=== PATIENT | male | born 1970 | race Caucasian/White ===

== ENCOUNTER 2024-06-01 02:02 | Emergency (ER) | payer SELFPAY ==
--- NOTE | 2024-06-01 | ECG_ITS ---
Test Reason : TACHY Blood Pressure : */* mmHG Vent. Rate : 90 BPM Atrial Rate : 90 BPM P-R Int : 138 ms QRS Dur : 100 ms QT Int : 354 ms P-R-T Axes : 37 23 17 degrees QTcB Int : 433 ms Normal sinus rhythm with sinus arrhythmia Normal ECG No previous ECGs available Referred By: Generic ED Physician Electronically Signed By: DELIA VALENTINE
--- NOTE | ~2024-06-01 | CT_ITS ---
CLINICAL HISTORY: Right flank pain RLQ pain CT abdomen and pelvis without contrast Comparison: None Findings: The lung bases are clear. The gallbladder and solid organs are within normal limits. No renal stones. There is a significant amount of stool within the right and transverse colon. There may be fecal impaction in the rectosigmoid. Pelvic contents unremarkable. Normal appendix. No acute fracture. IMPRESSION: There is a significant amount of stool within the right and transverse colon. There may be fecal impaction in the rectosigmoid. This document has been electronically signed by: Rashel Combs MD on 06/01/2024 05:49:20
--- NOTE | 2024-06-01 02:00 | PC.NURSE ---
pt a&ox4, respirations even and unlabored. pt reports sudden onset of left sided chest pain and lower right quadrant pain. pt reports intermittent nausea but denies vomiting and diarrhea. pt is hard stick, labs obtained but unable to obtain iv access at this time. vss.
[2024-06-01 02:06] VITALS: BP 120/84; BP 96/54; PULSE 150; PULSE 85; RESP 20; TEMP 36.9; O2SAT 98; BMI 25.7
[2024-06-01 02:26] LABS: Basophils Percent Auto 0.5 % (0-2); Eosinophils Absolute Auto 0.3 X10*3/uL (0.0-0.4); Eosinophils Percent Auto 4.6 % (0-4); Hematocrit 39.9 % (42.0-52.0); Hemoglobin 13.6 g/dl (14.0-18.0); Imm Gran Abs Auto 0.02 X10*3/uL (0.00-0.03); Imm Gran Pct Auto 0.4 % (0.0-0.4); Lymphocytes Absolute Auto 1.5 X10*3/uL (1.2-4.9); Lymphocytes Percent Auto 26.4 % (20-40); Mean Corpuscular HGB Conc 34.1 g/dl (31.0-36.0); Mean Corpuscular Hemoglobin 29.5 pg (27.0-33.0); Mean Corpuscular Volume 86.6 fL (80.0-98.0); Mean Platelet Volume 10.6 fL (9.4-12.4); Monocytes Absolute Auto 0.6 X10*3/uL (0.1-1.2); Monocytes Percent Auto 10.4 % (2-11); Neutrophils Absolute Auto 3.3 x10*3/uL (2.0-8.3); Neutrophils Percent Auto 57.7 % (45-73); PLT CLUMP 1; Red Blood Count 4.61 X10*6/uL (4.60-5.80); Red Cell Distribution Width 15.8 % (11.0-16.0); SCAN SMEAR FLAG 1
[2024-06-01 02:27] LABS: MANUAL DIFF FLAG NO; White Blood Count 5.7 X10*3/uL (4.8-10.8)
--- OUTSIDE RECORDS SUMMARY | 2024-06-01 02:35 | XMS_ITS | Clinical Summary ---
Author Organization Formerly [facility] Address [address] [place], [place] [id number] Care Team Providers Care Technology Lead Name Role Phone Unavailable Primary Care Provider Unavailabl e Allergies Active Allergy Reactions Criticality Noted Date Comments Wound Dressing Adhesive Rash Low REDNESS AND ITCHING-SEE NOTE Transpore tape Ketorolac Hives High 01/02/2018 Ketorolac Tromethamine Hives,Swelling High SWELLING AND HIVES Latex Hives High 10/11/2018 Lorazepam Anaphylaxis,Rash High 05/24/2012 Rash and throat closes Tramadol Hives,Swelling High Medications Medication Sig Dispensed Refills Start Date End Date Status lisinopril 10 MG tablet Take 10 mg by mouth daily. Active ASPIRIN 81 MG chewable tablet Chew 81 mg daily. Active nitroglycerin (Nitrostat) 0.[address] 0.4 mg under the tongue every 5 (five) minutes as needed for chest pain. Active dilTIAZem extended release (Cardizem CD) 120 MG 24 hr capsule Take 1 capsule (120 mg) by mouth daily. 12/19/2022 Active Active Problems Problem Noted Date Diagnosed Date Microcytic anemia 02/10/2020 Hyperlipidemia 02/10/2020 Essential hypertension 02/10/2020 Left against medical advice 05/16/2019 Syncope 05/16/2019 Chest pain 10/18/2016 Family History Medical History Relation Name Comments Heart disease Father Stroke Father No Known Problems Mother Coronary artery disease Paternal Grandfather Heart disease Paternal Grandfather Relation Name Status Comments Father Alive Mother Paternal Grandfather Social History Tobacco Use Types Packs/Day Years Used Date Smoking Tobacco: Never Assessed Sex and Gender Information Value Date Recorded Sex Assigned at Not on file Gender Identity Not on file Sexual Orientation Not on file Last Filed Vital Signs Vital Sign Reading Time Taken Comments Blood Pressure 112/64 05/11/2023 10:43 AM MDT Pulse 108 05/11/2023 10:43 AM MDT Temperature 36.2 ??C (97.2 ??F) 05/11/2023 10:43 AM M DT Respiratory Rate 20 05/11/2023 10:43 AM MDT Oxygen Saturation 94% 05/11/2023 10:43 AM MDT Inhaled Oxygen Concentration - - Weight 83 kg (183 lb) 05/11/2023 10:43 AM MDT Height 185.4 cm (6' 1 ) 05/11/2023 10:43 AM MDT Body Mass Index 24.14 05/11/2023 10:43 AM MDT Plan of Treatment Not on file
--- OUTSIDE RECORDS SUMMARY | 2024-06-01 02:35 | XMS_ITS | Encounter Summary ---
Author Organization [facility] Address [address] [place] [address], [address] [place] [address] Care Team Providers Care Environmental Sciences Professor Name Role Phone None, Pcp Primary Care Provider UnavailDelmi Swift RN Unavailable [phone] Serenity Gallego RN Unavailable Unavailable Mansi Ya Pan Helper Unavailable [phone] Corrina Morales RN Unavailable Unavailable Source Comments In the event that these patient records contain information protected by federal confidentiality rules ( 42 CFR Part 2), the Federal rules prohibit you from making any further disclosure of this information unless further disclosure is expressly permitted by the written consent of the person to whom it pertains or as otherwise permitted by 42 CFR Part 2. A general authorization for the release ofmedical or other information is NOT sufficicient for this purpose. The Federal rules restrict any use of the information to criminally investigate or prosecute any alcohol or drug abuse patient.[facility] Encounter Details Date Type Department Care Team (Late st Contact Info) Description 12/17/1991 Historical Visit CONV HISTORICAL [facility], NOT CONVERTED Social History Tobacco Use Types Packs/Day Years Used Date Smoking Tobacco: Never Assessed Sex and Gender Information Value Date Recorded Sex Assigned at Male 11/15/2023 6:27 PM MDT Legal Sex Male 12:32 PM MST Gender Identity Male 11/15/2023 6:27 PM MDT Sexual Orientation Straight 11/15/2023 6: 27 PM MDT documented as of this encounter Plan of Treatment Not on file documented as of this encounter Visit Diagnoses Not on filedocumented in this encounter Care Teams Environmental Sciences Professor Relationship Specialty Start Date End Date None, Pcp, MD PCP - General Other or Unknown Specialty 01/10/13 Delmi Dill, JANICE Pan Helper 11/12/23 11/12/23 Serenity Gallego, clinical resource director 11/16/23 11/16/23 Mansi Ya, Pan Helper Pan Helper 11/19/23 11/19/23 Corrina Morales, clinical resource director 03/24/24 03/24/24 documented as of this encounter
--- OUTSIDE RECORDS SUMMARY | 2024-06-01 02:35 | XMS_ITS | Referral Summary ---
Author Organization [facility] Address [address] [place] [address] Care Team Providers Care Television And Radio Repairer Name Role Phone Pcp, None Given Primary Care Provider Unavailabl e Allergies Active Allergy Reactions Criticality Noted Date Comments Adhesive Itching,Rash Medium 06/06/2012 Clear tape, blisters Adhesive Tape Rash Low REDNESS AND ITCHING-SEE NOTE Transpore tape Adhesive Tape-Silicones Rash Low 06/05/2015 Diphenhydramine Hcl Other (See Comments) Pt. states allergic to IV form only. Ketorolac Tromethamine Hives,Swelling (water retention) High SWELLING AND HIVES Latex Hives High 10/11/2018 Lorazepam Anaphylaxis,Rash High 05/24/2012 Rash and throat closes Ketorolac Hives High 01/02/2018 Tramadol Hives,Swelling (water retention) High Medications lisinopril (PRINIVIL,ZESTRIL ) 10 MG tablet Take 10 mg by mouth daily. Active atorvastatin calcium (LIPITOR ORAL) Take 20 mg by mouth daily. Active nitroglycerin (NITROSTAT) 0.[address] 1 tablet (0.4 mg) under the tongue every 5 minutes as needed for chest pain. 90 tablet 4 Active rivaroxaban (XARELTO) 20 mg tablet Take 1 tablet (20 mg) by mouth daily with dinner. 90 tablet 4 12/23/19 25 Active metoprolol succinate (TOPROL-XL) 100 MG 24 hr tabletIndications :Atrial fibrillation with RVR (CMS/HCC) Take 1 tablet (100 mg) by mouth 2 times a day. 180 tablet 11/1712/23/19 25 Active Active Problems Problem Noted Date Diagnosed Date CVA (cerebral vascular accident) 07/12/2023 Assessment & Plan (07/12/2023 11:27 AM MDT): Assessment:see HPI, patient reports 2 previous CVAs in the past with no residual deficits, he is chronically anticoagulated on Xarelto secondary to A-fib, he reports he is compliant with all his medications and is on a statin, he denies any missed doses, patient presented with sudden onset headache and left-sided numbness, initial NIH was 18 -Patient seen by neurology-not a candidate for TNK secondary to chronic anticoagulation-neurology recommended aspirin suppository be given, okay to start DVT prophylaxis, recommend stat MRI to assess clot burden and close monitoring and IMC Plan: Stroke order set placed with complete workup including echocardiogram, MRI brain, PT OT and speech eval's, lipid panel, A1c Schizophrenia 07/12/2023 Overview (08/01/2023): Assessment patient reports multiple diagnoses with psych disorders including PTSD, dissociative identity disorder, schizophrenia and schizoaffective disorder, severe depression requiring electric shock therapy, patient reports he is not currently on any psych medications Assessment & Plan (07/12/2023 11:31 AM MDT): Assessment patient reports multiple diagnoses with psych disorders including PTSD, dissociative identity disorder, schizophrenia and schizoaffective disorder, severe depression requiring electric shock therapy, patient reports he is not currently on any psych medications -He reports he will need full anesthesia for MRI due to the head plate use to stabilize his head and MRI is similar to his electric shock therapy and will trigger a panic attack if they try to apply it while he is conscious Plan: As above, have reached out to MRI to schedule anesthesia for MRI as above, will hold off on ordering any behavior medications or anxiety medications due to need for close neurological monitoring secondary to acute CVA, continue to follow during hospital stay Tobacco abuse 07/12/2023 Assessment & Plan (07/12/2023 11:31 AM MDT): Assessment: Historical, chronic, patient smokes 1/2 pack/day, also smokes marijuana and uses edibles Plan: Recommend complete tobacco cessation and lifetime avoidance Stroke with cerebral ischemia 07/12/2023 Hyperthyroidism 05/11/2023 Assessment & Plan (07/12/2023 11:28 AM MDT): Assessment: Patient reports history of hyperthyroidism-Home med list do not show any current medications for this Plan: Check TSH, follow Assessment & Plan (05/11/2023 11:01 AM MDT): -Undetectable TSH, T4 is elevated -Recommend that he talk to his primary care doctor about getting a referral to endocrinology as hyperthyroidism could be driving his atrial fibrillation Coronary artery disease invo lving curyung coronary artery of curyung heart without angina pectoris 05/11/2023 Overview (08/01/2023): History nonobstructive coronary artery disease by cath in 2019 in [place] Assessment & Plan (07/12/2023 11:21 AM MDT): Assessment: Patient reports 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, is on beta-aakash, JONES inhibitor, statin, initially presented with chest pain but reports no chest pain currently, initial troponin 5, EKG without ST elevation, do not suspect ACS at this time Plan: Hold off on home dose antihypertensive regimen for now in the setting of need for permissive hypertension due to stroke, will monitor on telemetry, follow for any further symptoms Assessment & Plan (05/11/2023 11:01 AM MDT): -History nonobstructive coronary artery disease by cath in 2019 in [place] -Continue atorvastatin -Metoprolol as above -Transthoracic echo Longstanding persistent atrial fibrillation 10/2023 Overview (08/01/2023): 14 day monitor, 05/2023: The patient was monitored for 9 days 12 hours and 3 minutes. The predominant rhythm showed atrial fibrillation. Min HR: 56 bpm Max HR: 211 bpm Mean HR: 99 bpm There were no PACs.There were occasional PVCs. Percent PVC's: 1. PAC burden: 0% PVC burden: 1% Paroxysmal SVT: None Sustained SVT: None Atrial fibrillation: Persistent, ventricular rates ranging from 56 to 211 bpm with average ventricular rate of 100 bpm Atrial flutter: None Nonsustained ventricular arrhythmias: None Sustained ventricular arrhythmias: None Heart block or pauses: None Patient reported symptoms correlated with: Atrial fibrillation with ventricular rates ranging from 104 to 112 bpm Assessment & Plan (08/01/2023 11:10 AM MDT): Marginally controlled rates as noted above. Denies adverse side effects to metoprolol succinate. -Increase metoprolol succinate to 100 mg BID -Cont Xarelto -Of note, patient is transferring care to [facility] Cardiology and is already scheduled with them next month. Assessment & Plan (07/12/2023 11:29 AM MDT): Assessment: Historical, chronic, patient is on metoprolol for rate control and Xarelto for anticoagulation, reports compliance with all medications, no missed doses, does have a previous history of CVAs in the past Plan: Hold home dose regimen for now in the setting of acute CVA, follow on telemetry Assessment & Plan (05/11/2023 11:03 AM MDT): -Patient remains in A-fib today with borderline controlled rhythm -Given history of nonobstructive coronary artery disease by cath, will discontinue diltiazem and increase metoprolol succinate from 50 mg to 100 mg daily -Transthoracic echo to evaluate left atrial size and LV function -[id number] 2 (hypertension, vascular disease) -Continue Eliquis 5 mg twice daily -Patient states that he has had multiple CVAs in the past, but looking at all of his imaging, there is been no evidence of CVA and he is only had TIA type symptoms Hyperlipidemia 02/10/2020 Overview (08/01/2023): Treated with atorvastatin 20 mg nightly. Assessment & Plan (08/01/2023 10:47 AM MDT): Would recommend high intensity statin therapy in the setting of prior CVA, will defer to PCP. Assessment & Plan (07/12/2023 11:32 AM MDT): Assessment: Historical, chronic, patient is on Lipitor Plan: Lipid panel ordered, continue statin in the setting of CVA-will increase dose Assessment & Plan (05/11/2023 11:00 AM MDT): -Continue atorvastatin -Management per PCP Assessment & Plan (02/10/2020 3:46 PM MST): Cont home statin Essential hypertension 02/10/2020 Assessment & Plan (08/01/2023 10:48 AM MDT): Well-controlled in office at 110/58. Assessment & Plan (07/12/2023 11:27 AM MDT): Assessment: Historical, chronic, patient is on lisinopril and metoprolol at baseline, BP trends in the ED without significant elevation Plan: Hold home dose antihypertensive regimen in the setting of CVA-will allow for permissive hypertension-antihypertensives per stroke order set with goal systolic blood pressure less than 220 Assessment & Plan (05/11/2023 11:00 AM MDT): -Blood pressure currently at goal -Changes to medications as above Assessment & Plan (02/10/2020 3:48 PM MST): On 10 mg lisinopril at home BPs well controlled to low in ED -will cont home BP medication Microcytic anemia 02/10/2020 Assessment & Plan (02/10/2020 3:49 PM MST): Appears chronic for patient. Hgb 11.1 in ED and appears BL per chart review around 11 -would recommend outpatient work-up Left against medical advice 05/16/2019 Syncope 05/16/2019 Chest pain 10/18/2016 Assessment & Plan (02/10/2020 3:46 PM MST): Pt with two day history of substernal chest pain that radiates to left arm. Pt also with hx of CAD with pt reported LA in the past. Per chart review last Cath 2014 and was clean. Echo 09/2019 in care everywhere showed nml LVEF 64% moderate diastolic dysfunction and mild right ventricular dilation -Will trend trops q6h already neg x2 -Stress test in am -Cardiac Diet and NPO after midnight -Consider cards consult if worsening or elevated trops -A1c/Lipids to Risk Stratify -Monitor on Tele/Pulse Ox -Keep O2 >90 per protocol -Pain control with tylenol and nitro PRN -Admit to tele-obs Social History Tobacco Use Types Packs/Day Years Used Date Smoking Tobacco: Every Day Cigarettes 0.5 35 Smokeless Tobacco: Never Tobacco Cessation:Ready to Q uit: Not Asked; Counseling Given: Not Answered Alcohol Use Standard Drinks/Week Comments Yes 0 (1 standard drink = 0.6 oz pur e alcohol) occ. [facility] Utilities Answer Date Recorded In the past 12 months has e [employer], gas, oil, or water [employer] threatened to shut off services in your home? No 07/12/2023 Humiliation, Afraid, Rape, and Kick questionnair e Answer Date Recorded Within the last year, have y ou been afraid of your partner or ex-partner? No 07/12/2023 Within the last year, have y ou been humiliated or emotionally abused in other ways by your partner or ex-partner? No Within the last year, have y ou been kicked, hit, slapped, or otherwise physically hurt by your partner or ex-partner? No 07/12/2023 Within the last year, have y ou been raped or forced to have any kind of sexual activity by your partner or ex-partner? No 07/12/2023 PHQ-2 Answer Date Recorded PHQ-2 Score 0 04/08/2019 Hunger Vital Sign Answer Date Recorded Within the past 12 months, y ou worried that your food would run out before you got the money to buy more. Never true 07/12/19 24 Within the past 12 months, t he food you bought just didn't last and you didn't have money to get more. Never true 07/12/2023 PRAPARE - Transportation Answer Date Re corded In the past 12 months, has l ack of transportation kept you from medical appointments or from getting medications? No 07/2023 In the past 12 months, has l ack of transportation kept you from meetings, work, or from getting things needed for daily living? No 07/12/2023 Housing Stability Vital Sign Answer Kendell e Recorded In the last 12 months, was t here a time when you were not able to pay the mortgage or rent on time? No 07/12/2023 In the last 12 months, how many places have you lived? 1 07/12/2023 In the last 12 months, was t here a time when you did not have a steady place to sleep or slept in a longterm (including now)? No 07/12/2023 Sex and Gender Information Value Date Recorded Sex Assigned at Not on file Legal Sex Male 1:22 PM MDT Gender Identity Not on file Sexual Orientation Not on file Last Filed Vital Signs Vital Sign Reading Time Taken Comments Blood Pressure 101/71 02/15/2024 1:30 PM MST Pulse 85 02/15/2024 1:30 PM MST Temperature 36.7 ??C (98.1 ??F) 02/15/2024 10:10 AM M Respiratory Rate 17 02/15/2024 1:30 PM MST Oxygen Saturation 94% 02/15/2024 1:30 PM MST Inhaled Oxygen Concentration - - Weight 87.7 kg (193 lb 5.5 oz) 02/15/2024 10:16 AM MST Height 185.4 cm (6' 1 ) 02/15/2024 10:16 AM MST Body Mass Index 25.51 02/15/2024 10:16 AM MST Plan of Treatment Not on file [place] [place] [address] [address] [place] [address] [place] [address] [place] [address] Advance Directives * Full Code (Latest Code Status on File) Date Activated Date Inactivated Comments 07/12/2023 12:56 PM 07/13/2023 4:18 PM * Full Code Date Activated Date Inactivated Comments 04/13/2023 6:19 PM 04/14/2023 1:00 PM * Full Code Date Activated Date Inactivated Comments 03/16/2023 10:29 PM 03/17/2023 7:56 AM * Full Code Date Activated Date Inactivated Comments 02/10/2020 2:51 PM 02/11/2020 8:15 AM * Full Code Date Activated Date Inactivated Comments 04/08/2019 3:27 PM 04/09/2019 9:15 AM Care Teams Television And Radio Repairer Relationship Specialty Start Date End Date Pcp, None Given PCP - General 02/15/24
--- OUTSIDE RECORDS SUMMARY | 2024-06-01 02:35 | XMS_ITS | Encounter Summary ---
Author Organization [facility] Address [address] [place] [address], [address] [place] [address] Care Team Providers Care Clam Bed Worker Name Role Phone None, Pcp Primary Care Provider UnavailDelmi Swift RN Unavailable [phone] Serenity Gallego RN Unavailable Unavailable Mansi Ya Embroiderer Unavailable [phone] Corrina Morales RN Unavailable Unavailable Source Comments [...] or prosecute any alcohol or drug abuse patient.[facility] Encounter Details Date Type Department Care Team (Late st Contact Info) Description 05/08/2009 Emergency [facility] - Emergency [address] [place] [address] Calvin Greenberg MD Social History Tobacco Use Types Packs/Day Years Used Date Smoking Tobacco: Never Assessed Sex and Gender Information Value Date Recorded Sex Assigned at Male 11/15/2023 6:27 PM MDT Legal Sex Male 12:32 PM MST Gender Identity Male 11/15/2023 6:27 PM MDT Sexual Orientation Straight 11/15/2023 6: 27 PM MDT documented as of this encounter Miscellaneous Notes * Scanned Note Null - Document Scanned - 12/03/2011 9:01 AM MDT * Scanned Note Null - Document Scanned - 12/03/2011 9:01 AM MDT * Scanned Note Null - Document Scanned - 12/03/2011 9:01 AM MDT * Scanned Note Null - Document Scanned - 11/17/2011 9:02 AM MDT * Scanned Note Null - Document Scanned - 11/17/2011 9:02 AM MDT * Scanned Note Null - Document Scanned - 11/17/2011 9:02 AM MDT * Scanned Note Null - Document Scanned - 11/17/2011 9:02 AM MDT * Scanned Note Null - Document Scanned - 11/17/2011 9:02 AM MDT * Scanned Note Null - Document Scanned - 11/17/2011 9:00 AM MDT * Scanned Note Null - Document Scanned - 11/17/2011 9:00 AM MDT * Scanned Note Null - Document Scanned - 11/17/2011 9:00 AM MDT * Scanned Note Null - Document Scanned - 11/17/2011 8:59 AM MDT * Scanned Note Null - Document Scanned - 11/17/2011 8:59 AM MDT * Scanned Note Null - Document Scanned - 11/17/2011 8:59 AM MDT * Scanned Note Null - Document Scanned - 11/17/2011 8:58 AM MDT * Scanned Note Null - Document Scanned - 11/17/2011 8:58 AM MDT * Scanned Note Null - Document Scanned - 11/17/2011 8:58 AM MDT documented in this encounter Plan of Treatment Not on file documented as of this encounter Visit Diagnoses Not on filedocumented in this encounter Care Teams Clam Bed Worker Relationship Specialty Start Date End Date None, Pcp, MD PCP - General Other or Unknown Specialty 01/10/13 Delmi Dill, RN Embroiderer 11/12/23 11/12/23 Serenity Gallego, mason foreman/superintendant 11/16/23 11/16/23 Mansi Ya, Embroiderer Embroiderer 11/19/23 11/19/23 Corrina Morales, mason foreman/superintendant 03/24/24 03/24/24 documented as of this encounter
--- OUTSIDE RECORDS SUMMARY | 2024-06-01 02:35 | XMS_ITS | Clinical Summary ---
Author Organization [address] Address [address] [place] [phone] Phone Care Team Providers Care Route Cdl Driver Name Role Phone No, Pcp (Do Not Change Name) Primary Care Provid er Unavailable Allergies Active Allergy Reactions Criticality Noted Date Comments Diphenhydramine Hcl Other (See Comments) Medium 2024 Patient reports 'joints locked up' when given via IV. Metoclopramide Other (See Comments) Medium 12/06/2021 Patient reports that his body tenses up and he has muscle spasms Adhesive Tape-Silicones Itching,Dermatit is,E pili Low 03/26/2017 Clear Plastic Ketorolac Hives High 10/31/2013 & vomiting per patient SP Tramadol Hives High 10/31/2013 & vomiting per patient SP Medications aspirin chewable tablet Take 1 tablet (81 mg total) by mouth daily. Active metoprolol succinate XL (TOPROL-XL) 100 mg 24 hr tablet Take 1 tablet (100 mg total) by mouth 2 (two) times daily. Take with or immediately following a meal. Active rivaroxaban (XARELTO) 20 mg tablet Take 1 tablet (20 mg total) by mouth daily. Active lisinopril (PRINIVIL,ZEST RIL) 10 MG tabletIndicati ons:hypertensi on Take 1 tablet (10 mg total) by mouth daily. 14 tablet 6 025 Discontinu ed(!Delete Cleanup (No Cancel Msg)) nitroGLYCERIN (NITROSTAT) 0.[address] 1 tablet (0.4 mg total) under the tongue every 5 (five) minutes as needed for Chest pain. 14 tablet 6 025 Discontinu ed(!Delete Cleanup (No Cancel Msg)) atorvastatin (LIPITOR) 20 MG tablet Take 20 mg by mouth daily. 025 Discontinu ed(!Delete Cleanup (No Cancel Msg)) Active Problems Problem Noted Date Diagnosed Date Antisocial personality disorder 12/06/2021 Rule out Malingering 12/06/2021 Homelessness 12/06/2021 Chest pain 03/26/2017 HTN (hypertension) 03/26/2017 Psychosis, unspecified psychosis type (HC Code) (HC CODE) 04/17/2015 Encounters Date Type Department Care Team Description 05/23/2024 Patient Outreach Care Coordination [address] [place] [address] Guera Pascual RN Hospital Discharge Follow Up 05/20/2024 2:27 PM EDT - 05/21/2024 5:45 AM EDT Emergency [facility] [address] [place] [id number] Roseann Suazo MD Krotovskiy, Mikhail, MD Chest pain (Primary Dx) Discharge Disposition: Left Against Medical Advice 05/20/2024 Travel from Last 3 Months Social History Tobacco Use Types Packs/Day Years Used Date Smoking Tobacco: Every Day Cigarettes Smokeless Tobacco: Never Tobacco Cessation:Ready to Q uit: No; Counseling Given: Yes Alcohol Use Standard Drinks/Week Comments No 0 (1 standard drink = 0.6 oz pur e alcohol) [facility] Utilities Answer Date Recorded In the past 12 months has [employer], gas, oil, or water [employer] threatened to shut off services in your home? No 05/20/2024 Overall Financial Resource Strain (CARDIA) Answe r Date Recorded How hard is it for you to pa y for the very basics like food, housing, medical care, and heating? Hard 12/07/2021 PHQ-2 Answer Date Recorded PHQ-2 Total Score 0 05/20/2024 Hunger Vital Sign Answer Date Recorded Within the past 12 months, y ou worried that your food would run out before you got the money to buy more. Sometimes true Within the past 12 months, t he food you bought just didn't last and you didn't have money to get more. Sometimes true PRAPARE - Transportation Answer Date Re corded In the past 12 months, has l ack of transportation kept you from medical appointments or from getting medications? No 05/06 In the past 12 months, has l ack of transportation kept you from meetings, work, or from getting things needed for daily living? No 05/20/2024 Housing Stability Answer Date Recorded What is your living situation today? I d o not have a steady place to live (temporarily staying with others, in a hotel, in a alf, living outside on the street, on a beach, in a car, abandoned building, bus or train station, or in a park) 05/20/2024 Housing Stability Not on file 05/20/2024 Interpersonal Safety Answer Date Record ed Is there anyone in your life that is hurting or threatening you in anyway? 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 Not on file Not on file Last Filed Vital Signs Vital Sign Reading Time Taken Comments Blood Pressure 126/68 05/21/2024 5:27 AM EDT Pulse 74 05/21/2024 5:27 AM EDT Temperature 36.5 ??C (97.7 ??F) 05/21/2024 5:27 AM ED T Respiratory Rate 18 05/20/2024 8:13 PM EDT Oxygen Saturation 97% 05/21/2024 5:27 AM EDT Inhaled Oxygen Concentration - - Weight 85.4 kg (188 lb 4.8 oz) 05/20/2024 7:50 P M EDT Height 185.4 cm (6' 1 ) 05/20/2024 7:50 PM EDT Body Mass Index 24.84 05/20/2024 7:50 PM EDT Plan of Treatment Health Maintenance Due Date Last Done Comments Hepatitis C screening 1990 Prediabetes Surveillance 1990 Pneumococcal Vaccine (50+ years) (1 of 2 - PCV) 10/13/1991 Tetanus adult (Td q 10,TDAP once) 1992 Colon cancer screening, Colonoscopy 2017 Shingles vaccine (Shingrix) (1 of 2 - Shingrix (RZV) 2 Dose Standard Series) 2022 Covid-19 vaccine series ( - season) 2023 Influenza vaccine 10/06/2024 Diabetes screening 05/21/2027 05/20/2024, 1 03/17/2021, 12/07/2021, Additional history exists Lipid disorder screening 05/20/2029 025, 04/17/2015, 04/17/2015 RSV Immunization (1 - 1-dose 75+ series) 10/13/2047 HIV screening Completed 05/17/2018, 09/04/2017 Meningococcal Vaccine Aged Out No otis dominic eligible based on patient's age to complete this topic Procedures Procedure Name Priority Date/Time Associated Diagnosis Comments PARTIAL THROMBOPLASTIN TIME ([facility]) Timed 05/20/2024 9:40 PM EDT URINE MICROSCOPIC ([facility]) STAT 05/20/2024 5:41 PM EDT FENTANYL, URINE, WITH NO CONFIRMATION ([facility] L [facility]) STAT 05/20/2024 5:41 PM EDT URINE DRUG SCREEN W/ NO CONF ([facility]) STAT 05/20/2024 5:41 PM EDT URINALYSIS-MACROSCOPIC W/REFLEX MICROSCOPIC STAT 05/20/2024 5:41 PM EDT URINE DRUG SCREEN W/ NO CONF ([facility]) STAT 05/20/2024 5:41 PM EDT XR CHEST PA OR AP STAT 05/20/2024 4:5 7 PM EDT TROPONIN T HIGH SENSITIVITY, 1 HOUR WITH REFLEX ([facility]) STAT - Timed 05/20/2024 4:13 PM EDT CBC AND DIFFERENTIAL STAT 05/20/2024 2:50 PM EDT BASIC METABOLIC PANEL STAT 05/20/2024 2:50 PM EDT LIPID PANEL Add-On 05/20/2024 2:50 PM EDT CBC WITH AUTO DIFFERENTIAL STAT 05/20/2024 2:50 PM EDT BASIC METABOLIC PANEL STAT 05/20/2024 2:50 PM EDT ETHANOL ([facility]) STAT 05/20/2024 2:50 PM EDT TROPONIN T HIGH SENSITIVITY, 0 HOUR BASELINE WITH REFLEX ([facility]) STAT 05/20/2024 2:50 PM EDT HEPATIC FUNCTION PANEL STAT 2:50 PM EDT LACTIC ACID, PLASMA (REFLEX 2H REPEAT) STAT 05/20/2024 2:50 PM EDT BLOOD GAS, VENOUS ( [facility]) Urgent 05/20/2024 2:50 PM EDT EKG STAT 05/20/2024 2:40 PM EDT CARDIAC EKG RESULT SCAN 05/20/2024 12:00 AM EDT from Last 3 Months Results * Partial thromboplastin time (05/20/2024 9:40 PM EDT) [facility] PTT 28.2 23.0 - 31.0 seconds 05/20/2024 10:09 PM EDT [facility] Comment:THERAPEUTIC RANGE: 3 5-75 seconds Blood Venipuncture / Unknown 05/20/2024 9:40 PM EDT 05/20/2024 9:52 PM EDT us Roseann Suazo MD LAB BLOOD ORDERABLES Final Resul t [facility] [place] [address], [facility] [phone] * (ABNORMAL) Urine drug screen w/no conf ([facility]) (05/20/2024 5:41 PM EDT) [facility] Barbiturate Screen, Urine, No Conf. Negative Negative 05/20/2024 6:12 PM EDT [facility] Benzodiazepines Screen, Urine, No Conf. Negative Negative 05/20/2024 6:12 PM EDT [facility] Cannabinoids Screen, Urine, No Conf. Positive(A) Negative 05/20/2024 6:12 PM EDT [facility] Cocaine Screen, Urine, No Conf. Negative Negative 05/20/2024 6:12 PM EDT [facility] Methadone Metabolite Screen, Urine, No Conf. Negative Negative 05/20/2024 6:12 PM EDT [facility] Opiates Screen, Urine, No Conf. Negative Negative 05/20/2024 6:12 PM EDT [facility] Oxycodone Screen, Urine, No Conf. Negative Negative 05/20/2024 6:12 PM EDT [facility] Phencyclidine (PCP) Screen, Urine, No Conf. Negative Negative 05/20/2024 6:12 PM EDT [facility] Amphetamine Screen, Urine, No Conf. Negative Negative 05/20/2024 6:12 PM EDT [facility] Drugs Of Abuse Note See Comment 05/20/2024 6:12 PM EDT [facility] Comment: Drugs of Abuse Note: - These screening cutoffs are for medical/treatment/clinical purposes only. - For all non-medical purposes, samples should be referred for confirmatory testing - The concentration value must be greater than or equal to the cutoff to be reported as positive, and less than the cutoff to be reported as negative. - Follow-up confirmation testing by mass spectrometry is recommended for unexpected results. - Interpretive questions should be directed to the laboratory. - This test was performed in a CLIA certified laboratory. Analyte ?Cutoff (ng/mL) Amphetamine ?1000 Barbiturate ?200 Benzodiazepine ? 200 Cannabinoids ? 50 Cocaine ?300 Methadone/Methadone Metabolite* ?100 Opiates ?300 Oxycodone ?100 Phencyclidine (PCP) ?25 * At -, , and [facility] the screening cutoff for Methadone is 300 ng/mL. Urine Collection / Unknown 05/20/2024 5:41 PM EDT 05/20/2024 5:44 PM EDT Roseann Suazo MD URINE ORDERABLES Final Result [facility] [address] [place] [address] * Urine microscopic ([facility]) (05/20/2024 5:41 PM EDT) RBC/HPF, UA 1 0 - 2 /HPF 05/20/2024 5:52 PM EDT [facility] WBC/HPF, UA 5 0 - 5 /HPF 05/20/2024 5:52 PM EDT [facility] Bacteria, UA Rare None-Rare /HPF 05/20/2024 5:52 PM EDT [facility] Urine Squamous Epithelial Cells, UA 2 0 - 5 /HPF 05/20/2024 5:52 PM EDT [facility] Urine Collection / Unknown 05/20/2024 5:41 PM EDT 05/20/2024 5:44 PM EDT Roseann Suazo MD URINE ORDERABLES Final Result [facility] [address] [place] [address] * (ABNORMAL) Urinalysis (No UTI symptoms) (05/20/2024 5:41 PM EDT) Clarity, UA Clear Clear 05/20/2024 5:48 PM EDT [facility] Color, UA Yellow Yellow, Colorless 05/20/2024 5:48 PM EDT [facility] Specific Stebbins, UA 1.031(H) 1.005 - 1.030 05/20/2024 5:48 PM EDT [facility] pH, UA 6.0 5.5 - 7.5 05/20/2024 5:48 PM EDT [facility] Protein, UA Trace Negative, Trace 05/20/2024 5:48 PM EDT [facility] Glucose, UA Negative Negative 05/20/2024 5:48 PM EDT [facility] Ketones, UA Negative Negative 05/20/2024 5:48 PM EDT [facility] Blood, UA Negative Negative 05/20/2024 5:48 PM EDT [facility] Bilirubin, UA Negative Negative 05/20/2024 5:48 PM EDT [facility] Leukocytes, UA 2+(A) Negative 05/20/2024 5:48 PM EDT [facility] Nitrite, UA Negative Negative 05/20/2024 5:48 PM EDT [facility] Urobilinogen, UA <2.0 <=2.0 mg/dL 05/20/2024 5:48 PM EDT [facility] Urine Collection / Unknown 05/20/2024 5:41 PM EDT 05/20/2024 5:44 PM EDT Roseann Suazo MD URINE ORDERABLES Final Result Performing Organization Address City/[facility] Co de Phone Number [facility] [address] [place] [address] * Fentanyl, urine, with no confirmation ([facility]) (05/20/2024 5:41 PM EDT) [facility] Signature Fentanyl Screen, Urine Negative Negative 05/20/2024 6:12 PM EDT [facility] Comment: This immunoassay is reported as negative if the reactivity is below that of a 5 ng/mL calibrator. Effective 07/25/22, the Clinical Chemistry Laboratory at [facility] is running the urine fentanyl immunoassay test using Shaina recommended reagents. Drugs Of Abuse Note 05/20/2024 6:12 PM EDT [facility] Comment: Formal chain of custody documentation not maintained on clinical specimens. Results are intended for medical management purposes only. Urine Collection / Unknown 05/20/2024 5:41 PM EDT 05/20/2024 5:44 PM EDT us Roseann Suazo MD URINE ORDERABLES Final Result Performing Organization Address City/[facility]/ZIP Co de Phone Number [facility] [address] [place] [address] * CXR (portable) (05/20/2024 4:57 PM EDT) Anatomical Region Laterality Modality Chest Digital Radiogra phy 05/20/2024 5:18 PM EDT Impressions 05/20/2024 5:23 PM EDT No acute cardiothoracic abnormality. [facility] Classification: Routine. Report initiated by: ??Roseann Kirkland MD Reported and signed by: Tobi Martines MD [facility] Narrative 05/20/2024 5:23 PM EDT XR CHEST PA OR AP INDICATION: CHEST PAIN COMPARISON: XR CHEST PA AND LATERAL 2022-01-15 FINDINGS: ?? The cardiomediastinal silhouette is not enlarged. Calcifications are noted in the aortic arch. Calcified nodule in the left perihilar region similar to prior. The lungs are otherwise clear. The pleural spaces are clear. There is no acute osseous injury. Procedure Note Tobi Martines MD - 05/20/2024 XR CHEST PA OR AP INDICATION: CHEST PAIN COMPARISON: XR CHEST PA AND LATERAL 2022-01-15 FINDINGS: The cardiomediastinal silhouette is not enlarged. Calcifications are notedin the aortic arch. Calcified nodule in the left perihilar region similar to prior. The lungsare otherwise clear. The pleural spaces are clear. There is no acute osseous injury. IMPRESSION: No acute cardiothoracic abnormality. [facility] Classification: Routine. Report initiated by: Roseann Kirkland MD Reported and signed by: Tobi Martines MD [facility] Roseann Suazo MD IMG DIAGNOSTIC IMAGING ORDERABLE S Final Result * Troponin T High Sensitivity, 1 Hour With Reflex ([facility]) (05/20/2024 4:13 PM EDT) [facility] Signature High Sensitivity Troponin T 8 See Comment ng/L 05/20/2024 4:39 PM EDT [facility] Comment:High Sensitivity Tro ponin T levels should be interpreted in the context of the [facility] Care Signature pathway. 1 hour Delta from 0 Hour, HS-Troponin T 0 ng/L 05/20/2024 4:39 PM EDT [facility] Blood Venipuncture / Unknown 05/20/2024 4:13 PM EDT 05/20/2024 4:17 PM EDT Roseann Suazo MD LAB BLOOD ORDERABLES Final Resul t [facility] [address] [place] [address] * Lactic acid, plasma (reflex 2h repeat) (05/20/2024 2:50 PM EDT) [facility] Lactate 1.0 0.4 - 2.0 mmol/L 05/20/2024 3:35 PM EDT [facility] Blood Venipuncture / Unknown 05/20/2024 2:50 PM EDT 05/20/2024 2:56 PM EDT us Roseann Suazo MD LAB BLOOD ORDERABLES Final Resul t [facility] [address] [place] [address] * (ABNORMAL) Basic metabolic panel (05/20/2024 2:50 PM EDT) [facility] Sodium 138 136 - 144 mmol/L 05/20/2024 3:20 PM EDT [facility] Potassium 4.3 3.3 - 5.3 mmol/L 05/20/2024 3:20 PM EDT [facility] Chloride 106 98 - 107 mmol/L 05/20/2024 3:20 PM EDT [facility] CO2 21 20 - 30 mmol/L 05/20/2024 3:20 PM EDT [facility] Anion Gap 11 7 - 17 05/20/2024 3:20 PM EDT [facility] Glucose 107(H) 70 - 100 mg/dL 05/20/2024 3:20 PM EDT [facility] BUN 15 6 - 20 mg/dL 05/20/2024 3:20 PM EDT [facility] Creatinine 0.70 0.40 - 1.30 mg/dL 05/20/2024 3:20 PM EDT [facility] Calcium 9.1 8.8 - 10.2 mg/dL 05/20/2024 3:20 PM EDT [facility] BUN/Creatinine Ratio 21.4 8.0 - 23.0 05/20/2024 3:20 PM EDT [facility] eGFR (Creatinine) >60 >=60 mL/min/1.7 3m2 05/20/2024 3:20 PM EDT [facility] Comment: [facility] utilizes CKD-EPI Creatinine 2020 to report eGFR. Values < 60 mL/min/1.73 m2 may indicate CKD if present for more than three months AND creatinine is at steady state. The eGFR provides a rough estimate of kidney function. For further guidance, please refer to the CKD: Adult [employer] Signature pathway. Creatinine Delta 05/20/2024 3:20 PM EDT [facility] Comment:No previous creatini ne <5.00 mg/dL is available within the previous 12 months to calculate a delta creatinine. Blood Venipuncture / Unknown 05/20/2024 2:50 PM EDT 05/20/2024 2:56 PM EDT Roseann Suazo MD LAB BLOOD ORDERABLES Final Resul t Performing Organization Address City/[facility]/ZIP Co de Phone Number [facility] [address] [place] [address] * Troponin T High Sensitivity, Emergency; 0 hour baseline with reflex (1 hour and 3 hour) (52:50 PM EDT) [facility] High Sensitivity Troponin T 8 See Comment ng/L 05/20/2024 3:35 PM EDT [facility] Comment:High Sensitivity Tro ponin T levels should be interpreted in the context of the [facility] Care Signature pathway. Blood Venipuncture / Unknown 05/20/2024 2:50 PM EDT 05/20/2024 2:56 PM EDT Roseann Suazo MD LAB BLOOD ORDERABLES Final Resul t [facility] [address] [place] [address], [facility] [phone] * (ABNORMAL) CBC auto differential (05/20/2024 2:50 PM EDT) [facility] WBC 8.3 4.0 - 11.0 x1000/??L 05/20/2024 3:18 PM EDT [facility] RBC 4.53 4.00 - 6.00 M/??L 05/20/2024 3:18 PM EDT [facility] Hemoglobin 12.9(L) 13.2 - 17.1 g/dL 05/20/2024 3:18 PM EDT [facility] Hematocrit 39.40 38.50 - 50.00 % 05/20/2024 3:18 PM EDT [facility] MCV 87.0 80.0 - 100.0 fL 05/20/2024 3:18 PM EDT [facility] MCH 28.5 27.0 - 33.0 pg 05/20/2024 3:18 PM EDT [facility] MCHC 32.7 31.0 - 36.0 g/dL 05/20/2024 3:18 PM EDT [facility] RDW-CV 15.4(H) 11.0 - 15.0 % 05/20/2024 3:18 PM EDT [facility] Platelets 424(H) 150 - 420 x1000/??L 05/20/2024 3:18 PM EDT [facility] MPV 9.1 8.0 - 12.0 fL 05/20/2024 3:18 PM EDT [facility] Neutrophils 74.3(H) 39.0 - 72.0 % 05/20/2024 3:18 PM EDT [facility] Lymphocytes 14.1(L) 17.0 - 50.0 % 05/20/2024 3:18 PM EDT [facility] Monocytes 9.5 4.0 - 12.0 % 05/20/2024 3:18 PM EDT [facility] Eosinophils 1.2 0.0 - 5.0 % 05/20/2024 3:18 PM EDT [facility] Basophil 0.5 0.0 - 1.4 % 05/20/2024 3:18 PM EDT [facility] Immature Granulocytes 0.4 0.0 - 1.0 % 05/20/2024 3:18 PM EDT [facility] nRBC 0.0 0.0 - 1.0 % 05/20/2024 3:18 PM EDT [facility] Absolute Lymphocyte Count 1.17 0.60 - 3.70 x 1000/??L 05/20/2024 3:18 PM EDT [facility] Monocyte Absolute Count 0.79 0.00 - 1.00 x 1000/??L 05/20/2024 3:18 PM EDT [facility] Eosinophil Absolute Count 0.10 0.00 - 1.00 x 1000/??L 05/20/2024 3:18 PM EDT [facility] Basophil Absolute Count 0.04 0.00 - 1.00 x 1000/??L 05/20/2024 3:18 PM EDT [facility] Absolute Immature Granulocyte Count 0.03 0.00 - 0.30 x 1000/??L 05/20/2024 3:18 PM EDT [facility] Absolute nRBC 0.00 0.00 - 1.00 x 1000/??L 05/20/2024 3:18 PM EDT [facility] ANC (Abs Neutrophil Count) 6.19 2.00 - 7.60 x 1000/??L 05/20/2024 3:18 PM EDT [facility] Blood Venipuncture / Unknown 05/20/2024 2:50 PM EDT 05/20/2024 2:56 PM EDT us Roseann Suazo MD LAB BLOOD ORDERABLES Final Resul t [facility] [address] [place] [address], [facility] [phone] * (ABNORMAL) Blood gas, venous ( Y) (05/20/2024 2:50 PM EDT) pH, Venous 7.43 7.32 - 7.43 units 05/20/2024 3:04 PM EDT [facility] pCO2, Venous 35(L) 38 - 54 mmHg 05/20/2024 3:04 PM EDT [facility] PO2, Venous 59(H) 40 - 50 mmHg 05/20/2024 3:04 PM EDT [facility] O2 Sat, Venous 91 Not Established % 05/20/2024 3:04 PM EDT [facility] Calculated HCO3, Venous 22.8 Not Established mmol/L 05/20/2024 3:04 PM EDT [facility] Base Excess, Venous 0 Not Established mmol/L 05/20/2024 3:04 PM EDT [facility] Temperature, Venous 99.0 Fahrenheit 05/20/2024 3:04 PM EDT [facility] Blood Venipuncture / Unknown 05/20/2024 2:50 PM EDT 05/20/2024 2:56 PM EDT us Roseann Suazo MD LAB BLOOD ORDERABLES Final Resul t Performing Organization Address City/[facility]/ZIP Co de Phone Number [facility] [address] [place] [address] * Ethanol (05/20/2024 2:50 PM EDT) Pathologist [facility] Ethanol <10 <10 mg/dL 05/20/2024 3:20 PM EDT [facility] Blood Venipuncture / Unknown 05/20/2024 2:50 PM EDT 05/20/2024 2:56 PM EDT us Roseann Suazo MD LAB BLOOD ORDERABLES Final Resul t [facility] [address] [place] [id number], [facility] [phone] * Hepatic function panel (05/20/2024 2:50 PM EDT) Total Bilirubin 0.2 <=1.2 mg/dL 05/21/19 25 3:20 PM EDT [facility] Bilirubin, Direct 025 3:20 PM EDT [facility] Comment:Sample Hemolyzed. Alkaline Phosphatase 109 9 - 122 U/L 05/20/2024 3:20 PM EDT [facility] Alanine Aminotransferase (ALT) 24 9 - 59 U/L 05/20/2024 3:20 PM EDT [facility] Comment:Calcium dobesilate c an cause artificially low ALT results at therapeutic concentrations Aspartate Aminotransferase (AST) 27 10 - 35 U/L 05/20/2024 3:20 PM EDT [facility] AST/ALT Ratio 1.1 Reference Range Not Established 05/20/2024 3:20 PM EDT [facility] Total Protein 6.6 5.9 - 8.3 g/dL 025 3:20 PM EDT [facility] Comment:As of 2023, th e reference interval for Total Protein has been changed from (6.6 to 8.7 g/dL) to (5.9 to 8.3 g/dL). Albumin 4.0 3.6 - 5.1 g/dL 05/20/2024 3:20 PM EDT [facility] Comment:As of 2023, th e reference interval for Albumin has been changed from (3.6 to 4.9 g/dL) to (3.6 to 5.1 g/dL). Globulin 2.6 2.0 - 3.9 g/dL 05/20/2024 3:20 PM EDT [facility] Comment:As of 2023, th e reference interval for Globulin has been changed from (2.3 to 3.5 g/dL) to (2.0 to 3.9 g/dL). A/G Ratio 1.5 1.0 - 2.2 05/20/2024 3:20 PM EDT [facility] Blood Venipuncture / Unknown 05/20/2024 2:50 PM EDT 05/20/2024 2:56 PM EDT us Roseann Suazo MD LAB BLOOD ORDERABLES Final Resul t [facility] [address] [place] [address], [facility] [phone] * (ABNORMAL) Lipid panel (05/20/2024 2:50 PM EDT) [facility] Signature Cholesterol 133 See Comment mg/dL 05/20/2024 7:56 PM EDT [facility] Comment: Total Cholesterol (mg/dL) ?Adults (>18 years) ? Children (<18 years) Desirable ?<200 ? <170 Borderline-High ?200-239 ?170-199 High ? >=240 ?>=200 ? HDL 47 >=40 mg/dL 05/20/2024 7:56 PM EDT [facility] Triglycerides 170(H) See Comment mg/dL 05/20/2024 7:56 PM [facility] Comment: Triglycerides (mg/dL) ?Adults (>18 years) ? Children (<18 years) Desirable ?<150 ? Not Established Borderline-High ?150-199 ?Not Established High ? 200-499 ?Not Established ?? Chol/HDL Ratio 2.8 0.0 - 5.0 05/20/2024 7:56 PM [facility] LDL Calculated 58 See Comment mg/dL 05/20/2024 7:56 PM [facility] Comment: Effective 07/13/2021, LDL is calculated using the Norton-NIH equation, which is more accurate than the Friedewald and Rolando-Tanner equations. LDL Cholesterol (mg/dL) ?Adults (>18 years) ? Children (<18 years) Desirable ?<100 ? <110 Above Desirable ?100-129 ?Not Established Borderline-High ?130-159 ?110- 129 High ? 160-189 ?>=130 Very High? >=190 ? Not Established Blood Venipuncture / Unknown 05/20/2024 2:50 PM EDT 05/20/2024 2:56 PM EDT us Roseann Suazo MD LAB BLOOD ORDERABLES Final Resul t Performing Organization Address City/State/[facility] Co de Phone Number [id number] [address] [place] [address], [facility] [phone] * EKG (05/20/2024 2:40 PM EDT) Heart Rate 91 bpm SRC EKG QRS Interval 100 ms SRC EKG QT Interval 323 ms SRC EKG QTC Interval 398 ms SRC EKG P [place] 60 deg SRC EKG QRS [place] 62 deg SRC EKG T Wave [place] 49 deg SRC EKG P-R Interval 124 msec SRC EKG SEVERITY Normal ECG severity SRC EKG Comment::Sinus rhythm:Electr onically Signed On 05-20-2024 15:37:01 EDT by ROSEANN SUAZO MD 05/20/2024 2:40 PM EDT us Roseann Suazo MD ECG ORDERABLES Final Result SRC EKG * Cardiac EKG Result Scan (05/20/2024 12:00 AM EDT) us Provider Not In System CV CARDIAC REPORT (CVR) F inal Result from Last 3 Months Advance Directives * Full Code (Latest Code Status on File) Date Activated Date Inactivated Comments 05/20/2024 7:13 PM 05/21/2024 11:05 AM * Full ACLS Date Activated Date Inactivated Comments 03/26/2017 9:18 PM 03/27/2017 11:36 AM Question Answer Comments With Whom was the Code Status Discussed? Patient * Full ACLS Date Activated Date Inactivated Comments 03/26/2017 7:43 PM 03/26/2017 9:18 PM Care Teams Route Cdl Driver Relationship Specialty Start Date End Date No, Pcp (Do Not Change Name) PCP - General 10/31/13
--- OUTSIDE RECORDS SUMMARY | 2024-06-01 02:35 | XMS_ITS | Encounter Summary ---
Author Organization [facility] Address [address] [place] [address], [address] [id number] Care Team Providers Care Spanisher Name Role Phone None, Pcp Primary Care Provider UnavailDelmi Swift RN Unavailable [phone] Serenity Gallego RN Unavailable Unavailable Mansi Ya Dental Technologist Unavailable [phone] Corrina Morales RN Unavailable Unavailable Source Comments [...] or prosecute any alcohol or drug abuse patient.[facility] Encounter Details Date Type Department Care Team (Late st Contact Info) Description 03/14/2007 Emergency [facility] - Emergency Department [address] [place] [id number] Beto Jean MD [address] [place] [phone] Social History Tobacco Use Types Packs/Day Years [...] on filedocumented in this encounter Care Teams Spanisher Relationship Specialty Start Date End Date None, Pcp, MD PCP - General Other or Unknown Specialty 01/10/13 Delmi Dill, RN Dental Technologist 11/12/23 11/12/23 Serenity Gallego, publishing manager 11/16/23 11/16/23 Mansi Ya, Dental Technologist Dental Technologist 11/19/23 11/19/23 Corrina Morales, publishing manager 03/24/24 03/24/24 documented as of this encounter
--- OUTSIDE RECORDS SUMMARY | 2024-06-01 02:35 | XMS_ITS | Clinical Summary ---
Author Organization [employer] Address [address] [place] [address] Care Team Providers Care Business Services Administrator Name Role Phone Pcp, None Given Primary [...] atrial fibrillation Coronary artery disease invo lving [place] coronary artery of [place] heart without angina pectoris 05/11/2023 Overview (08/01/2023): History nonobstructive coronary artery disease by cath in 2019 in [place] Assessment & Plan (07/12/2023 11:21 AM MDT): [...] artery disease by cath in 2019 in [place] -Continue atorvastatin -Metoprolol as above -Transthoracic echo [...] -Of note, patient is transferring care to [facility] Cardiology and is already scheduled with [...] evaluate left atrial size and LV function -[id number] 2 (hypertension, vascular disease) -Continue Eliquis 5 [...] with hx of CAD with pt reported DC in the past. Per chart review last [...] tylenol and nitro PRN -Admit to tele-obs Family History Medical History Relation Name Comments [...] = 0.6 oz pur e alcohol) occ. [facility] Utilities Answer Date Recorded In the past 12 months has e [employer], gas, oil, or water [employer] threatened to shut off services in your [...] place to sleep or slept in a jail (including now)? No 07/12/2023 Sex and Gender Information Value Date Recorded Sex Assigned at Not on file Legal Sex Male 1:22 PM MDT Gender Identity Not on file Sexual Orientation Not on file Last Filed Vital Signs Vital Sign Reading Time Taken Comments Blood Pressure 101/71 02/15/2024 1:30 PM [facility] Pulse 85 02/15/2024 1:30 PM [facility] Temperature 36.7 ??C (98.1 ??F) 02/15/2024 10:10 AM [facility] Respiratory Rate 17 02/15/2024 1:30 PM [facility] Oxygen Saturation 94% 02/15/2024 1:30 PM [facility] Inhaled Oxygen Concentration - - Weight 87.7 kg (193 lb 5.5 oz) 02/15/2024 10:16 AM [facility] Height 185.4 cm (6' 1 ) 02/15/2024 10:16 AM [facility] Body Mass Index 25.51 02/15/2024 10:16 AM [facility] Plan of Treatment Health Maintenance Due Date Last Done Comments CT Colonography 1972 Colonoscopy 1972 Colorectal Cancer Screening 1972 FIT-DNA 1972 FIT 1972 FOBT 1972 Hepatitis C Screening 1972 Sigmoidoscopy 1972 Td/Tdap 1990 Pneumococcal Vaccine: Peds a nd At-Risk Patients < 65 (1 of 2 - PCV) 10/13/1991 Shingles Vaccine (1 of 2) 2022 COVID-19 Vaccine ( - season) 2023 Influenza Vaccine (Season Ended) 2024 Insurance [place] Advance Directives * Full Code (Latest Code [...] 3:27 PM 04/09/2019 9:15 AM Care Teams Business Services Administrator Relationship Specialty Start Date End Date Pcp, None Given PCP - General 02/15/24
--- OUTSIDE RECORDS SUMMARY | 2024-06-01 02:36 | XMS_ITS ---
Author Name [facility] Organization Unknown Results Test Name/Text Value Interpretation Date Range Source NUCLEATED RBC 0% Normal [id number] - [facility] LYMPHOCYTES 29.7% Normal [id number] 20 - 52 [facility] IMMATURE GRAN. 0.6% Normal [id number] 0 - 1.1 CT [facility] ABS. IMMATURE GRAN. 0.03K/uL Normal [id number] - 0.1 [facility] ABS. LYMPHOCYTE 1.46K/uL Normal [id number] 1 - 5.2 C [facility] BASOPHIL 0.6% Normal [id number] 0 - 2 [facility] MONOCYTE 11.4% Normal [id number] 0 - 12.5 [facility] ABS. EOSINOPHIL 0.19K/uL Normal [id number] 0 - 0.45 [facility] EOSINOPHIL 3.9% Normal [id number] 0 - 4 [facility] ABS. NUCLEATED RBC 0K/uL Normal [id number] - [facility] ABS. NEUTROPHIL 2.65K/uL Normal [id number] 2.5 - 7 [facility] NEUTROPHIL 53.8% Normal [id number] 50 - 70 [facility] ABS. BASOPHIL 0.03K/uL Normal [id number] 0 - 0.2 [facility] DIFF TYPE AUTOMATED Normal [id number] [facility] ABS. MONOCYTE 0.56K/uL Normal [id number] 0 - 0.9 [facility] HEMOGLOBIN 12.5g/dL Below low normal [id number] 13.5 - [address] 310K/uL Normal [id number] 150 - 450 [facility] RDWS 49.4fL Normal [id number] 41 - 51 [facility] MCV 87.6fL Normal [id number] 80 - 96 [facility] MPV 9.2fL Normal [id number] 8 - 13 [facility] HEMATOCRIT 37.6% Below low normal [id number] 40 - 54 [facility] RBC COUNT 4.29M/uL Below low normal [id number] 4.6 - 6.2 [facility] MCHC 33.2g/dL Normal [id number] 32 - 36 [facility] RDWC 15.4% Normal [id number] 11 - 16 [facility] MCH 29.1pg Normal [id number] 27 - 31 [facility] WBC COUNT 4.92K/uL Normal [id number] 4.2 - 10 [facility] ACETAMINOPHEN <10.0 Below low normal [id number] 10 - 3 0 [facility] SALICYLATE <1.0 Below low normal [id number] 15 - 30 [facility] ALCOHOL <10 Abnormal [id number] - [facility] CHLORIDE 109mmol/L Above high normal [id number] 98 - 107 [facility] BUN/CREA RATIO 33.33Ratio Normal [id number] [facility] BICARBONATE 24mmol/L Normal [id number] 24 - 32 [facility] ANION GAP 10 Normal [id number] 10 - 25 [facility] CALCIUM 9mg/dL Normal [id number] 8.4 - 10.2 [facility] GLUCOSE, RANDOM 105mg/dL Normal [id number] 65 - 130 [facility] POTASSIUM 4.2mmol/L Normal [id number] 3.5 - 5.1 [facility] CREATININE 0.6mg/dL Normal [id number] 0.5 - 1.2 [facility] BUN 20mg/dL Normal [id number] 6 - 20 [facility] SODIUM 139mmol/L Normal [id number] 135 - 145 [facility] CALCIUM 8.8mg/dL Normal [id number] 8.4 - 10.2 [facility] BUN 14mg/dL Normal [id number] 6 - 20 [facility] TOTAL PROTEIN 6.1g/dL Below low normal [id number] 6.4 - 8.3 [facility] CREATININE 0.7mg/dL Normal [id number] 0.5 - 1.2 [facility] A:G RATIO 2.05Ratio Above high normal [id number] 0.91 - 1.95 [facility] POTASSIUM 3.9mmol/L Normal [id number] 3.5 - 5.1 [facility] ANION GAP 10 Normal [id number] 10 - 25 [facility] SODIUM 137mmol/L Normal [id number] 135 - 145 [facility] BICARBONATE 22mmol/L Below low normal [id number] 24 - 32 [facility] ALBUMIN 4.1g/dL Normal [id number] 3.5 - 5 [facility] ALKALINE PHOSPHATASE 88Units/L Normal [id number] 40 - 129 [facility] SGOT 25Units/L Normal [id number] 17 - 59 [facility] BUN/CREA RATIO 20Ratio Normal [id number] CT [facility] SGPT 28Units/L Normal [id number] - 50 [facility] BILIRUBIN, TOTAL 0.4mg/dL Normal [id number] 0.2 - 1.3 [facility] CHLORIDE 109mmol/L Above high normal [id number] 98 - 107 [facility] GLOBULIN 2g/dL Below low normal [id number] 2.3 - 4.5 [facility] GLUCOSE, RANDOM 95mg/dL Normal [id number] 65 - 130 [facility] ABS. NEUTROPHIL 2.52K/uL Normal [id number] 2.5 - 7 [facility] NUCLEATED RBC 0% Normal [id number] - [facility] ABS. LYMPHOCYTE 1.13K/uL Normal [id number] 1 - 5.2 [facility] NEUTROPHIL 59.2% Normal [id number] 50 - 70 [facility] ABS. NUCLEATED RBC 0K/uL Normal [id number] - [facility] ABS. MONOCYTE 0.46K/uL Normal [id number] 0 - 0.9 [facility] EOSINOPHIL 2.8% Normal [id number] 0 - 4 [facility] LYMPHOCYTES 26.5% Normal [id number] 20 - 52 [facility] ABS. IMMATURE GRAN. 0.01K/uL Normal [id number] - 0.1 [facility] MONOCYTE 10.8% Normal [id number] 0 - 12.5 [facility] ABS. EOSINOPHIL 0.12K/uL Normal [id number] 0 - 0.45 [facility] ABS. BASOPHIL 0.02K/uL Normal [id number] 0 - 0.2 [facility] BASOPHIL 0.5% Normal [id number] 0 - 2 [facility] IMMATURE GRAN. 0.2% Normal [id number] 0 - 1.1 CT [facility] DIFF TYPE AUTOMATED Normal [id number] [facility] RDWS 48.4fL Normal [id number] 41 - 51 [facility] MCHC 32.8g/dL Normal [id number] 32 - 36 [facility] WBC COUNT 4.26K/uL Normal [id number] 4.2 - 10 [facility] MCH 28.4pg Normal [id number] 27 - 31 [facility] HEMATOCRIT 37.2% Below low normal [id number] 40 - [address] 288K/uL Normal [id number] 150 - 450 [facility] RDWC 15.3% Normal [id number] 11 - 16 [facility] RBC COUNT 4.29M/uL Below low normal [id number] 4.6 - 6.2 [facility] HEMOGLOBIN 12.2g/dL Below low normal [id number] 13.5 - 18 [facility] MCV 86.7fL Normal [id number] 80 - 96 [facility] MPV 8.6fL Normal [id number] 8 - 13 [facility] RBC,URINE 0-2 Normal [id number] - [facility] BACTERIA NORMAL Normal [id number] - [facility] UA COMMENTS Manual Review NOT INDICATED Normal [id number] [facility] MICROSCOPIC/TYPE AUTOMATED Normal [id number] [facility] CASTS NEGATIVE Normal [id number] - [facility] WBC,URINE 0-5 Normal [id number] - [facility] EPITH,URINE TRACE Abnormal [id number] - [facility] GLUCOSE,URINE NEGATIVE Normal [id number] - [facility] PH,URINE 6 Normal [id number] 4.6 - 8 [facility] KETONES,URINE TRACE Abnormal [id number] - [facility] NITRITES,URINE NEGATIVE Normal [id number] - CT [facility] BLOOD,URINE NEGATIVE Normal [id number] - [facility] LEUKOCYTE ESTERASE,URINE NEGATIVE Normal [id number] - [facility] BILIRUBIN, URINE NEGATIVE Normal [id number] - [facility] COLOR,URINE YELLOW Normal [id number] [facility] UROBILINOGEN 1EU/dL Normal [id number] 0.2 - 1 [facility] H PROTEIN,URINE NEGATIVE Normal [id number] - [facility] SPECIFIC GRAVITY, URINE 1.025 Above high normal [id number] 1.005 - 1.022 [facility] APPEARANCE,URINE CLEAR Normal [id number] - [facility] aPTT Time Bld 26.3sec Normal [id number] 22.2 - 33.9 [facility]AT[facility] INR 1.04 Normal [id number] 0.93 - 1.1 RI_FAT LIT PT Time Bld 11.2sec Normal [id number] 9.7 - 11.6 RI_F ATIMA Potassium SerPl-sCnc 3.5mmol/L Normal [id number] 3.5 - 4.9 [facility] Sodium SerPl-sCnc 139mmol/L Normal [id number] 135 - 145 [facility] Calcium SerPl-mCnc 8.8mg/dL Normal [id number] 8.5 - 10 .5 [facility] Creat SerPl-mCnc 0.8mg/dL Normal [id number] 0.6 - 1.2 [facility] GFR/BSA pred.non black SerPl MDRD-ArVRat 60ml/min Normal [id number] - [facility] Chloride SerPl-sCnc 107mmol/L Normal [id number] 101 - 1 11 [facility] eGLOM FILT RATE AMER 60ml/min Normal [id number] - [facility] Anion Gap SerPl-sCnc 6 Normal [id number] 3 - 12 [facility] Magnesium SerPl-mCnc 2mg/dL Normal [id number] 1.7 - 2.4 [facility] CO2 SerPl-sCnc 26mmol/L Normal [id number] 21 - 31 RI _FATIMA Phosphate Bld-mCnc 3.2mg/dL Normal [id number] 2.5 - 4. 6 [facility] Glucose SerPl-mCnc 125mg/dL Above high normal [id number] 70 - 100 [facility] BUN SerPl-mCnc 14mg/dL Normal [id number] 6 - 20 RI _FATIMA Ethanol SerPl-mCnc 10mg/dL Normal [id number] - 10 [facility] TROPONIN I HS 2.6ng/L Normal [id number] 0 - 15 RI_ LACEY MCH RBC Qn Auto 29.5pg Normal [id number] 27 - 35 R I_FATIMA Monocytes NFr Bld Auto 10.5% Normal [id number] 2 - 12 [facility] Lymphocytes NFr Bld Auto 26% Normal [id number] 20 - 46 [facility] NRBC 0.1/100WBC Normal [id number] 0 - 0.4 RI_FAT LIT RBC # Bld Auto 4.61046/uL Below low normal [id number] 4.2 - 6.1 [facility] Eosinophil NFr Bld Auto 0103uL Normal [id number] 0 - 0.02 [facility] Monocytes # Bld Auto 0.5103uL Normal [id number] 0.1 - 0.9 [facility] Hgb Bld-mCnc 12.1g/dL Below low normal [id number] 14 - 18 [facility] MCV RBC Auto 85.7fL Normal [id number] 75 - 100 RI_F ATIMA MCHC RBC Auto-mCnc 34.5% Normal [id number] 31 - 37 [facility] Eosinophil # Bld Auto 0.1103uL Normal [id number] 0.1 - 0.9 [facility] Basophils NFr Bld 0103uL Normal [id number] 0 - 0.2 [facility] Hct VFr Bld Auto 35.2% Below low normal [id number] 42 - 52 [facility] Neutrophils # Bld Auto 2.6103uL Normal [id number] 2.2 - 7.5 [facility] WBC # Bld Auto 4.3103/ul Normal [id number] 4 - 11 RI _FATIM[facility] PMV Bld Auto 7.3fL Normal [id number] 5 - 15 [facility] ATIM[facility] Neutrophils NFr Bld Auto 60.7% Normal [id number] 40 - 75 [facility] Lymphocytes # Bld Auto 1.1103uL Normal [id number] 1 - 4 [facility] Basophils NFr Bld Auto 0.5% Normal [id number] 0 - 2 [facility] RDW RBC Auto-Rto 47.7fL Normal [id number] 37 - 51 [facility] Platelet # Bld Auto 848375/uL Normal [id number] 150 - 4 50 [facility]AT[facility] Hgb Ur Ql Negative Normal [id number] - CT_[facility]SF RAN Glucose Ur Ql Negative Normal [id number] - CT_ THSFRAN Prot Ur Strip-mCnc Negative Normal [id number] - [facility]SFR[facility] Color Ur Yellow Normal [id number] - [facility] RAN Leukocyte esterase Ur Ql Strip Negative Normal [id number] - CT_[facility] Sp Gr Ur 1.019 Normal [id number] 1.005 - 1.03 [facility] Nitrite Ur Ql Negative Normal [id number] - CT_ THSFRAN Ketones Ur-mCnc Negative Normal [id number] - C T_THSFRAN pH Ur 6pH Normal [id number] 5 - 8 CT_THSF RAN Clarity Ur Clear Normal [id number] - CT_THS RAMON Lipase SerPl-cCnc 22unit/L Normal [id number] 11 - 82 [facility] Glucose SerPl-mCnc 106mg/dL Normal [id number] 70 - 199 [facility] Bilirub SerPl-mCnc 0.3mg/dL Normal [id number] 0.3 - 1 [facility] Calcium SerPl-mCnc 9.1mg/dL Normal [id number] 8.4 - 10 .2 [facility] Creat SerPl-mCnc 0.8mg/dL Normal [id number] 0.7 - 1.3 CT_[facility] Anion Gap SerPl-sCnc 9 Normal [id number] 5 - 14 [facility] ALP SerPl-cCnc 94unit/L Normal [id number] 34 - 104 CT _THSFRAN Sodium SerPl-sCnc 139mmol/L Normal [id number] 135 - 145 CT_THSFRAN eGFRcr SerPlBld CKD-EPI 2020 107mL/min/1.73 m2 Normal [id number] - CT_[facility]AN Potassium SerPl-sCnc 4.1mmol/L Normal [id number] 3.5 - 5.1 [facility] Prot SerPl-mCnc 6.6g/dL Normal [id number] 6.4 - 8.5 C T_THSFRAN Chloride SerPl-sCnc 105mmol/L Normal [id number] 98 - 10 7 CT_THS[facility]AN BUN/Creat SerPl 17.5 Normal [id number] 12 - 20 C T_THSFRAN Albumin SerPl-mCnc 4.3g/dL Normal [id number] 3.5 - 5 [facility] CO2 SerPl-sCnc 25mmol/L Normal [id number] 24 - 32 CT _THS[facility] AST SerPl-cCnc 17unit/L Normal [id number] 5 - 40 CT _THSFRAN ALT SerPl-cCnc 18unit/L Normal [id number] 7 - 52 CT _THSFRAN BUN SerPl-mCnc 14mg/dL Normal [id number] 9 - 20 CT _THSFRAN PMV Bld Auto 6.8FL Below low normal [id number] 7.4 - 1 1.4 CT_[facility] RDW RBC Auto-Rto 15.9% Normal [id number] 12.1 - 17.7 [facility] Hgb Bld-mCnc 13.2g/dL Below low normal [id number] 13.5 - 18 [facility] Basophils # Bld Auto 0K/mcL Normal [id number] 0 - 0.2 [facility] Neutrophils/leuk NFr Bld Auto 70% Normal [id number] 44 - 74 [facility] Monocytes # Bld Auto 0.5K/mcL Normal [id number] 0 - 0.8 [facility] Monocytes/leuk NFr Bld Auto 9% Normal [id number] 2 - 12 [facility] Lymphocytes/leuk NFr Bld Auto 19% Below low normal [id number] 20 - 48 [facility] Basophils/leuk NFr Bld Auto 0.6% Normal [id number] 0 - 2 [facility] MCV RBC Auto 86.2FL Normal [id number] 78 - 100 CT_T HS[facility]AN Lymphocytes # Bld Auto 1.1K/mcL Normal [id number] 1 - 3.2 CT_THSFRAN MCH RBC Qn Auto 29.7pcg Normal [id number] 25 - 33 C T_THSFRAN WBC # Bld Auto 5.5K/mcL Normal [id number] 4 - 10.5 CT _THSFRAN MCHC RBC Auto-mCnc 34.5g/dL Normal [id number] 32 - 36 CT_[facility] Neutrophils # Bld Auto 3.9K/mcL Normal [id number] 1.8 - 7.8 CT_[facility] Platelet # Bld Auto 382K/mcL Normal [id number] 150 - 4 50 [facility] RBC # Bld Auto 4.46M/mcL Below low normal [id number] 4.7 - 6 CT_[facility] Hct VFr Bld Auto 38.4% Below low normal [id number] 40 - 54 [facility] Eosinophil/leuk NFr Bld Auto 1.4% Normal [id number] 0 - 6 [facility] Eosinophil # Bld Auto 0.1K/mcL Normal [id number] 0 - 0.5 CT_[facility] aPTT PPP 28.2seconds Normal [id number] 23 - 31 [facility] Barbiturates Ur Ql Scn Negative Normal [id number] - [facility] PCP Ur Ql Scn>25 ng/mL Negative Normal [id number] - [facility] BKR DRUGS OF ABUSE DISCLAIMER See Comment Normal [id number] [facility] BZE Ur Ql Scn Negative Normal [id number] - [facility] oxyCODONE Ur Ql Scn Negative Normal [id number] - [facility] Amphetamines Ur Ql Scn Negative Normal [id number] - [facility] Opiates Ur Ql Scn Negative Normal [id number] - [facility] Methadone Ur Ql Scn Negative Normal [id number] - [facility] Cannabinoids Ur Ql Scn Positive Abnormal [id number] - [facility] Benzodiaz Ur Ql Scn Negative Normal [id number] - [facility] fentaNYL Ur Ql Scn Negative Normal [id number] - [facility] BKR DRUGS OF ABUSE NOTE Normal [id number] [facility] Bacteria # Ur Auto Rare Normal [id number] - [facility] Squamous #/area UrnS Auto 2/HPF Normal [id number] 0 - 5 [facility] RBC #/area UrnS Auto 1/HPF Normal [id number] 0 - 2 [facility] WBC #/area UrnS Auto 5/HPF Normal [id number] 0 - 5 [facility] Clarity Ur Refract.auto Clear Normal [id number] - [facility] Glucose Ur Strip.auto-mCnc Negative Normal [id number] - [facility] Prot Ur Strip.auto-mCnc Trace Normal [id number] - [facility] Sp Gr Ur Refract.auto 1.031 Above high normal [id number] 1.005 - 1.03 [facility] pH Ur Strip.auto 6 Normal [id number] 5.5 - 7.5 [facility] Nitrite Ur Ql Strip.auto Negative Normal [id number] - [facility] Color Ur Auto Yellow Normal [id number] - [facility] Hgb Ur Ql Strip.auto Negative Normal [id number] - [facility] Ketones Ur Strip.auto-mCnc Negative Normal [id number] - [facility] Bilirub Ur Ql Strip.auto Negative Normal [id number] - [facility] Urobilinogen Ur Strip-mCnc 2mg/dL Normal [id number] - [facility] WBC # Ur Strip 2+ Abnormal [id number] - [facility] Troponin T SerPl HS-mCnc 0ng/L Normal [id number] [facility] Trigl SerPl-mCnc 170mg/dL Above high normal [id number] - [facility] LDLc SerPl Calc-mCnc 58mg/dL Normal [id number] - [facility] HDLc SerPl-mCnc 47mg/dL Normal [id number] - [facility] Cholest SerPl-mCnc 133mg/dL Normal [id number] - [facility] Cholest/HDLc SerPl 2.8 Normal [id number] 0 - 5 [facility] Lactate SerPl-sCnc 1mmol/L Normal [id number] 0.4 - 2 [facility] Troponin T SerPl HS-mCnc 8ng/L Normal [id number] - [facility] Globulin Plas-mCnc 2.6g/dL Normal [id number] 2 - 3.9 [facility] Bilirub Direct SerPl-mCnc Normal [id number] [facility] Albumin/Glob SerPl 1.5 Normal [id number] 1 - 2.2 [facility] Prot SerPl-mCnc 6.6g/dL Normal [id number] 5.9 - 8.3 [facility] Albumin SerPl BCG-mCnc 4g/dL Normal 3.6 - 5.1 [facility] AST SerPl w P-5'-P-cCnc 27U/L Normal [id number] 10 - 35 [facility] Bilirub SerPl-mCnc 0.2mg/dL Normal [id number] - [facility] ALT SerPl w/o P-5'-P-cCnc 24U/L Normal [id number] 9 - 59 [facility] AST/ALT SerPl-cRto 1.1 Normal [id number] - [facility] ALP SerPl-cCnc 109U/L Normal [id number] 9 - 122 [facility] Chloride SerPl-sCnc 106mmol/L Normal [id number] 98 - 10 7 [facility] Sodium SerPl-sCnc 138mmol/L Normal 136 - 144 [facility] Glucose SerPl-mCnc 107mg/dL Above high normal [id number] 70 - 100 [facility] Calcium SerPl-mCnc 9.1mg/dL Normal [id number] 8.8 - 10 .2 [facility] GFR/BSA.pred SerPlBld XUP-JHB-NlLCon 60mL/min/1.73m 2 Normal [id number] - [facility] BUN SerPl-mCnc 15mg/dL Normal [id number] 6 - 20 [facility] BUN/Creat SerPl 21.4 Normal [id number] 8 - 23 [facility] Potassium SerPl-sCnc 4.3mmol/L Normal [id number] 3.3 - 5.3 [facility] Anion Gap3 SerPl-sCnc 11 Normal [id number] 7 - 17 [facility] HCO3 SerPl-sCnc 21mmol/L Normal [id number] 20 - 30 [facility] Creat SerPl-mCnc 0.7mg/dL Normal [id number] 0.4 - 1.3 [facility] BKR CREATININE DELTA Normal [id number] [facility] Ethanol SerPl-mCnc 10mg/dL Normal [id number] - 10 [facility] Monocytes # Bld Auto 0.85o4483/uL Normal [id number] 0 - 1 [facility] WBC # Bld Auto 8.8v1814/uL Normal [id number] 4 - 11 [facility] Basophils/leuk NFr Bld Auto 0.5% Normal [id number] 0 - 1.4 [facility] Lymphocytes/leuk NFr Bld Auto 14.1% Below low normal [id number] 17 - 50 [facility] Platelet # Bld Auto 210u4380/uL Above high normal 5335441063 18 150 - 420 [facility] Eosinophil/leuk NFr Bld Auto 1.2% Normal [id number] 0 - 5 [facility] Monocytes/leuk NFr Bld Auto 9.5% Normal [id number] 4 - 12 [facility] nRBC # Bld Auto 8y2338/uL Normal [id number] 0 - 1 [facility] MCHC RBC Auto-mCnc 32.7g/dL Normal [id number] 31 - 36 [facility] Eosinophil # Bld Auto 0.0i4925/uL Normal [id number] 0 - 1 [facility] Neutrophils/leuk NFr Bld Auto 74.3% Above high normal [id number] 39 - 72 [facility] MCV RBC Auto 87fL Normal [id number] 80 - 100 [facility] MCH RBC Qn Auto 28.5pg Normal [id number] 27 - 33 [facility] PMV Bld Auto 9.1fL Normal [id number] 8 - 12 [facility] Lymphocytes # Bld Auto 1.79p3978/uL Normal [id number] 0.6 - 3.7 [facility] Hgb Bld-mCnc 12.9g/dL Below low normal [id number] 13.2 - 17.1 [facility] Basophils # Bld Auto 0.89e5295/uL Normal [id number] 0 - 1 [facility] RBC # Bld Auto 4.53M/uL Normal [id number] 4 - 6 [facility] RDW RBC Auto-Rto 15.4% Above high normal [id number] 11 - 15 [facility] nRBC/100 WBC Bld Auto-Rto 0% Normal [id number] 0 - 1 [facility] Neutrophils # Bld Auto 6.01d0416/uL Normal [id number] 2 - 7.6 [facility] Imm Granulocytes # Bld Auto 0.06t3936/uL Normal [id number] 0 - 0.3 [facility] Hct VFr Bld Auto 39.4% Normal [id number] 38.5 - 50 [facility] Imm Granulocytes/leuk NFr Bld Auto 0.4% Normal [id number] 0 - 1 [facility] BKR BASE EXCESS, VENOUS 0mmol/L Normal [id number] - [facility] WBC #/area UrnS HPF 59mmHg Above high normal [id number] 40 - 50 [facility] HCO3 std BldV-sCnc 22.8mmol/L Normal [id number] - [facility] pCO2 BldV 35mmHg Below low normal [id number] 38 - 54 [facility] pH BldV 7.43units Normal [id number] 7.32 - 7.43 [facility] BKR O2 SATURATION VENOUS 91% Normal [id number] - [facility] BKR TEMPERATURE (VENOUS BG SAMIRA QUESTION) 99Fahrenheit Normal [id number] [facility] of Medication Use Medication Directions Dispensed Refills Start Date End Date Stat HYDROmorphone (PF) (DILAUDID) injection 1 mg 1 mg, intravenous, Once, On Sun05/21/24 at 1520, For 1 dose 05/21/2024 5 completed iopamidoL (ISOVUE-370) 370 mg iodine /mL (76 %) injection 80 mL 80 mL, intravenous, Once in imaging, Starting on Sun05/21/24 at 1544, For 1 dose 05/21/2024 5 completed morphine injection 4 mg 4 mg, intravenous, Once, On Sun05/21/24 at 1439, For 1 dose 05/21/2024 5 completed ondansetron (PF) (ZOFRAN) injection 4 mg 4 mg, intravenous, Once, On Sun05/21/24 at 1520, For 1 dose 05/21/2024 5 completed sodium chloride 0.9 % flush 10 mL 10 mL, intravenous, Once, On Sun05/21/24 at 1545, For 1 dose 05/21/2024 5 completed sodium chloride 0.9 % intravenous solution 50 mL 50 mL, intravenous, Once in imaging, Starting on Sun05/21/24 at 1544, For 1 dose 05/21/2024 5 completed plasmalyte-A bolus 1,000 mL STAT, Intravenous, 1 dose, On Sun11/25/21 at 1100 11/25/2021 2 completed prochlorperazine edisylate (COMPAZINE) injection 10 mg 10 mg STAT, Intravenous, 1 dose, On Sun11/25/21 at 1100If ordered for IV administration, slow IV push at a rate not exceeding 5 mg/minute. MAX=40 MG/DAY. 11/25/2021 2 completed atorvastatin (LIPITOR) 10 MG tablet Take 10 mg by mouth apply as directed. active lisinopril (ZESTRIL) 20 MG tablet Take 20 mg by mouth apply as directed. 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, not intractable active EncounterDiagnosisAct [facility]E MPI History of weakness active 2021-11-25 ProblemAct [facility] Essential hypertension active 2013-06-12 ProblemAct [facility] Encounters Encounter Type Encounter Reason Primary Diagnosis Location Date Inpatient 16B 16B [facility] 05/31/2024 Emergency ABD PAIN ABD PAIN [facility] 05/30/2024 Emergency palpitations [facility] 05/29/2024 Emergency ABD PAIN Unspecified abdominal pain [facility] 05/21/2024 Inpatient Chest pain, unspecified Chest pain, unspecified [facility] 05/20/2024 Emergency Right lower quadrant pain [facility] 01/16/2022 Emergency Abdominal pain, right lower quadrant [facility] 01/14/2022 Emergency LOWER RIGHT ABD PAIN RIGHT LOWER QUADRANT PAIN [facility] 12/30/2021 Emergency Muscle weakness (generalized) [facility] 12/07/2021 Ambulatory Antisocial personality disorder (HC Code) (HC CODE) (HC Code) [facility] 12/06/2021 Ambulatory Chest pain, unspecified [facility] 12/05/2021 Emergency Hemiplegic migraine, not intractable, without status migrainosus Hemiplegic migraine, not intractable, without status migrainosus [facility] 11/25/2021 Emergency medical services Stroke Symptoms - Neuro Stroke/CVA [facility] 11/25/2021 Care Team Organization Name Specialty Phone Email Start Date End Da te [facility] UNASSIGNED,UNAS SIGNED Primary [facility] 05/30/2024 [facility] 05/30/2024 [facility] NO PCP Primary Care 05/29/2024 [facility] 05/29/2024 [facility] 05/24/2024 [facility] NO PHYSICIAN Primary Care 05/21/2024 [facility] 05/21/2024 [facility] NO PCP Primary Care 01/16/[address] [facility] PCP,No Primary Care 01/16/2022 [facility] 01/15/2022 [facility] 01/14/2022 2 [facility] NO PCP Primary Care 12/30/2021 09/24/19 2 4 [facility] 12/30/2021 2 [facility] 12/06/2021 02 2 [facility] 12/05/2021 2 [facility] 11/25/2021 4 [facility] ([facility]) , Primary Care 11/25/2021 2 [facility] ([facility]) MING YANCEY Primary Care [email or web address] 11/25/2021 2 [facility] 11/05/2013 4
--- OUTSIDE RECORDS SUMMARY | 2024-06-01 02:36 | XMS_ITS | Clinical Summary ---
Author Organization [facility] Address [address] [address] Care Team Providers Care Animal Herder Name Role Phone Asked, Nopcp Primary Care Provider Unavailabl e Allergies Active Allergy Reactions Criticality Noted Date Comments Adhesive Tape-Silicones Rash Low 06/05/2015 Diphenhydramine Hcl Hives 10/22/2016 Chlorhexidine Gluconate Rash 06/02/2016 Ketorolac Hives,Rash 03/27/2014 Latex Hives High 10/11/2018 Other reaction(s): Hives Lorazepam Anaphylaxis,Rash High 05/24/2012 Rash and throat closes Other Rash Low 01/20/2016 Tape Penicillins Rash Low 10/18/2021 Tramadol Hives,Rash 03/27/2014 Medications * This document contains information received from the source organization and may not represent a complete record from that organization. nitroglycerin (NITROSTAT) 0.[address] 1 tablet under the tongue every 5 minutes as needed for Chest pain. Active XARELTO 20 mg tablet Take 1 tablet by mouth daily (with dinner). Active metoprolol succinate (TOPROL-XL) 50 mg 24 hr tablet Take 2 tablets by mouth 2 times daily. 06/06/2023 Active methIMAzole (TAPAZOLE) 5 mg tablet Take 1 tablet by mouth daily for hyperthyroid ism. 90 tablet 06/20/2023 Active amoxicillin (AMOXIL) 500 mg tablet TAKE ONE TABLET BY MOUTH THREE TIMES DAILY UNTIL GONE 03/04/2024 Active aspirin 81 mg EC tablet Take 1 tablet by mouth daily (with breakfast). Active lisinopriL (PRINIVIL,ZESTR IL) 10 mg tablet Take 1 tablet by mouth. Active metoprolol tartrate (LOPRESSOR) 50 mg tablet Take 1 tablet by mouth 2 times daily. Active amoxicillin (AMOXIL) 500 mg capsule Take 1 capsule by mouth every 8 hours. Active methIMAzole (TAPAZOLE) 5 mg tablet Take 2 tablets by mouth. 03/24/2024 Active metoprolol succinate (TOPROL-XL) 50 mg 24 hr tablet Take 2 tablets by mouth 2 times daily. Active rivaroxaban (XARELTO) 20 mg tablet Take 1 tablet by mouth daily. 06/01/2023 Active Active Problems Problem Noted Date Diagnosed Date Persistent atrial fibrillation 06/20/2023 Hyperthyroidism 06/20/2023 Shortness of breath 06/20/2023 Acute left hemiparesis 03/23/2023 Cervicogenic headache 03/23/2023 Chronic a-fib 03/23/2023 Hemiparesis of dominant side 04/25/2022 Acute left-sided weakness 02/08/2020 Overview (02/08/2020): Thorough evaluation in the ER CT and CTA negative for acute process MRI brain negative for acute process Seen by neuro - notes appreciated - numerous visits for similar issues -even received TPA on occasion No left sided deficits seen Psychiatric evaluation requested for AM Microcytic anemia 02/08/2020 Overview (02/08/2020): Check Iron studies No bleeding reported Essential hypertension 02/08/2020 Overview (02/08/2020): Will continue home medications for now Pure hypercholesterolemia 02/08/2020 Overview (02/08/2020): Lipitor Tobacco abuse 12/24/2015 Elevated blood pressure 12/24/2015 History of noncompliance with medical treatment 12/24/2015 Left-sided weakness 12/24/2015 Left sided numbness 12/24/2015 Thrombocytopenia 12/24/2015 History of TIA (transient ischemic attack) and s troke 12/24/2015 Stroke of unknown cause 07/07/2015 Microcytic anemia 07/07/2015 Chest pain 07/02/2015 Weakness of left leg 07/02/2015 Resolved Problems Problem Noted Date Diagnosed Date Resolved Date Microcytic anemia 07/02/2015 07/07/2015 Encounters Date Type Department Care Team Description 03/24/2024 7:43 PM [facility] - 03/25/2024 8:04 AM [facility] Hospital Encounter [facility] [address] [place] [id number] Albin Weiss MD Pickering, MD Jagdeep Wagner Julia Marie, MD Suicidal ideations (Primary Dx); Homicidal ideations; Depressive disorder; Housing insecurity; Insomnia, unspecified type Discharge Disposition: Home or Self Care 03/24/2024 5:28 PM [facility] - 03/24/2024 7:22 PM [facility] Emergency [facility] Emergency Room - [facility] [address] [place] [address] Daya Silverman MD Suicidal ideation (Primary Dx); Atrial fibrillation with RVR (HC CODE) Discharge Disposition: Discharged to Other Facility 03/17/2024 Orders Only [facility] - [facility] ([facility]) [address] [place] [address] Arely Arrington MA from Last 3 Months Family History Medical History Relation Comments Heart disease Father Stroke Father Heart disease Other Relation Status Comments Father Alive Mother Other Social History Tobacco Use Types Packs/Day Years Used Date Smoking Tobacco: Every Day Cigarettes 0.5 35 Smokeless Tobacco: Never Tobacco Cessation:Ready to Q uit: Not Asked; Counseling Given: Not Answered Alcohol Use Standard Drinks/Week Comments Not Currently 1 (1 standard drink = 0.6 oz pure alcohol) Caffiene; 3 cups coffee daily, several sodas & iced teas daily PHQ-2 Answer Date Recorded PHQ-2 SCORE 2 03/21/2023 PHQ-9 Answer Date Recorded PHQ-9 Total Score 17 03/21/2023 Sex and Gender Information Value Date Recorded Sex Assigned at Male 12/19/2019 12:23 AM [facility] Legal Sex Male 3:53 PM [facility] Gender Identity Male 12/19/2019 12:23 AM [facility] Sexual Orientation Straight 12/19/2019 12 :23 AM [facility] Occupation Industry Job Start Date Job End Date Not on file Not on file Not on file Not on file Last Filed Vital Signs Vital Sign Reading Time Taken Comments Blood Pressure 106/78 03/25/2024 4:07 AM MST Pulse 73 03/25/2024 4:07 AM MST Temperature 36.7 ??C (98.1 ??F) 03/24/2024 8:50 PM MS T Respiratory Rate 16 03/25/2024 4:07 AM MST Oxygen Saturation 93% 03/25/2024 4:07 AM MST Inhaled Oxygen Concentration - - Weight 79.4 kg (175 lb) 03/24/2024 7:50 PM MST Height 185.4 cm (6' 1 ) 09/26/2023 10:47 AM MDT verbal Body Mass Index 23.09 09/26/2023 10:47 AM MDT Plan of Treatment Health Maintenance Due Date Last Done Comments CT Colonography 1972 Colonoscopy 1972 Colorectal Cancer Screening 1972 Flexible Sigmoidoscopy 1972 Hepatitis A Screening Adult 1972 Stool DNA Test (Cologuard) 1972 Stool Occult Blood Test (FIT) 1972 HIV Screening (Ages 15-65/One-time) 10/13/1987 Hepatitis C Antibody Screening 1990 [employer] Durable Power [facility] 1990 Pneumonia Vaccine 50+ (1 of 2 - PCV) 10/13/1991 Tdap/Td Vaccine (1 - Tdap) 10/13/1991 Shingles Vaccine (1 of 2) 2022 Influenza Vaccine (#1) 2023 SARS-COV2 (COVID-19) Vaccine (1 - season) 2023 Lipids 11/10/2028 11/11/2023, 03/2023, 07/13/2023, Additional history exists Procedures Procedure Name Priority Date/Time Associated Diagnosis Comments LAB USE ONLY - HOLD RED/YELLOW SPECKLED TUBE STAT 03/24/2024 8:45 PM MST LAB USE ONLY - NUNO TUBE HOLD STAT 03/24/2024 8:45 PM MST URINE DRUGS OF ABUSE SCREEN STAT 03/24/2024 8:45 PM MST ACETAMINOPHEN BLOOD STAT 03/24/2024 8 :45 PM MST ETHANOL BLOOD STAT 03/24/2024 8:45 PM MST SALICYLATE BLOOD STAT 03/24/2024 8:45 PM MST HEPATIC FUNCTION PANEL STAT 8:45 PM MST BASIC METABOLIC PANEL STAT 03/24/2024 8:45 PM MST CBC WITH AUTO DIFF STAT 03/24/2024 8: 45 PM MST ECG 12-LEAD STAT 03/24/2024 8:01 PM MST ECG 12-LEAD STAT 03/24/2024 5:56 PM MST LIPID PANEL Routine 10/23/2016 10:49 AM MDT from Last 3 Months or Most Recently Relevant to Health Maintenance Results * Red/Yellow Speckled Hold (03/24/2024 8:45 PM MST) Urine URINE SPECIMEN / Unknown 03/24/2024 8:45 PM MST 03/24/2024 9:04 PM MST us Albin Weiss MD URINE ORDERABLES Final Result Performing Organization Address [facility]/ZIP Co de Phone Number [address] [address] [phone] * Nuno Top Hold (03/24/2024 8:45 PM MST) Urine URINE SPECIMEN / Unknown 03/24/2024 8:45 PM MST 03/24/2024 9:04 PM MST us Albin Weiss MD URINE ORDERABLES Final Result Performing Organization Address [facility]/ZIP Co de Phone Number [address] [phone] * Ethanol, blood (03/24/2024 8:45 PM [facility]) Ethanol Blood <10 <10 mg/dL 03/24/2024 9:24 PM [place] Blood BLOOD SPECIMEN / Unknown Venipuncture / Unknown 03/24/2024 8:45 PM [facility] 03/24/2024 8:54 PM [facility] Albin Weiss MD LAB BLOOD ORDERABLES Final Resu lt Performing Organization Address [facility] [place] [address] [address], [facility] [phone] * Salicylate Blood (03/24/2024 8:45 PM [facility]) [facility] Signature Salicylate Blood <2.5 0.0 - 30.0 mg/dL 03/24/2024 9:24 PM [place] Comment:The reference range is provided only as general guidance, and individual patient results must be interpreted in light of other clinical signs and symptoms. The toxic range for salicylates starts at 30 mg/dL. Hemodialysis may be indicated when serum salicylic acid concentrations exceed 100 mg/dL. Blood BLOOD SPECIMEN / Unknown Venipuncture / Unknown 03/24/2024 8:45 PM [facility] 03/24/2024 8:54 PM [facility] us Albin Weiss MD LAB BLOOD ORDERABLES Final Resu lt Performing Organization Address City/[facility]/[place] [address] [place] [address], [facility] [phone] * Acetaminophen Blood (03/24/2024 8:45 PM [facility]) Acetaminophen Blood <10.0 0.0 - 30.0 ug/mL 03/24/2024 9:24 PM [place] Comment:Normal therapeutic d oses of acetaminophen result in serum concentrations of 10-30 ug/mL in healthy adults. Blood BLOOD SPECIMEN / Unknown Venipuncture / Unknown 03/24/2024 8:45 PM [facility] 03/24/2024 8:54 PM [facility] us Albin Weiss MD LAB BLOOD [place] [address] [place] [address], [facility] [phone] * (ABNORMAL) Urine Drugs of Abuse Screen (03/24/2024 8:45 PM [facility]) Amphet/Methamphet Urine Qualitative Negative Negative 03/24/2024 9:22 PM [place] Comment:Amphetamine, methamp hetamine, MDA, MDMA, or MDEA may be detected for 1-2 days after last use. Barbiturates Urine Qualitative Negative Negative 03/24/2024 9:22 PM [place] Comment:Short-acting barbitu rates may be detected for 1-2 days, and long-acting may be detected for 1-3 weeks after last use. Benzodiazepines Urine Qualitative Negative Negative 03/24/2024 9:22 PM [place] Comment:Short acting benzodi azepines may be detected for 1-2 days, while intermediate or long acting may be detected for 5-7 days after last use. Some benzodiazepines aren't detectable by this test. Cannabinoids Urine Qualitative Positive(A) Negative 03/24/2024 9:22 PM [place] Comment:THC metabolites may be detected for 1-3 days after a single exposure, but may remain positive for up to 30 days with ongoing use. Cocaine Metabolytes Urine Qualitative Negative Negative 03/24/2024 9:22 PM [place] Comment:Benzoylecgonine may be detected for 1-4 days after last use. Opiates Urine Qualitative Positive(A) Negative 03/24/2024 9:22 PM [place] Comment:Heroin, morphine, or codeine may be detected for 1-2 days after last use. Other opiates/opioids such as buprenorphine, fentanyl, methadone, oxymorphone, tramadol, hydromorphone, oxycodone, hydrocodone, and others aren't reliably detected by this test. Ethanol Urine Qualitative Negative Negative 03/24/2024 9:22 PM [place] Comment:Ethanol may only be detected up to 24 hours after last use. Fentanyl Urine Qualitative Positive(A) Negative 03/24/2024 9:22 PM [place] Comment:Norfentanyl is gener ally detectable for 2-4 days after a single fentanyl exposure. It may be detected for several weeks after last use in some who are exposed to fentanyl daily. Urine URINE SPECIMEN / Unknown 03/24/2024 8:45 PM [facility] 03/24/2024 8:54 PM [place] - 03/24/2024 9:22 PM [facility] Timeframes for detection are provided only as a general estimate and are highly variable. ??Both false-positive and false-negative results occur. ??These are presumptive results for medical screening purposes only. ??Confirmatory testing is indicated when a result is inconsistent with a patient's history or clinical presentation. ?? Cut-off for a positive result (concentration) Amphetamine/Methamphetamine (1000 ng/mL) Barbiturate (200 ng/mL) Benzodiazepine (200 ng/mL) Benzoylecgonine/Cocaine (300 ng/mL) Ethanol (10 mg/dL) Norfentanyl (5 ng/mL) THC/Cannabinoids (50 ng/mL) ?? Specific Opiates (300 ng/mL) Albin Weiss MD URINE ORDERAB[place] [address] [place], [place] [address] [phone] * (ABNORMAL) CBC with Auto Differential (03/24/2024 8:45 PM [facility]) [facility] White Blood Cell Count 9.4 4.0 - 11.1 10*9/L 03/24/2024 9:01 PM [place] Comment:Low volume, results may be unreliable. Red Blood Cell Count 5.05 4.76 - 6.09 10*12/L 03/24/2024 9:01 PM [place] Hemoglobin 14.6 14.3 - 18.1 g/dL 03/24/2024 9:01 PM [place] Hematocrit 45.8 39.2 - 50.2 % 03/24/2024 9:01 PM [place] Mean Corpuscular Volume 90.7 80.0 - 100.0 fL 03/24/2024 9:01 PM [place] Mean Corpuscular Hemoglobin 28.9 27.5 - 35.1 pg 03/24/2024 9:01 PM [place] Mean Corpuscular Hemoglobin Concentration 31.9(L) 32.0 - 36.0 g/dL 03/24/2024 9:01 PM [place] Platelet Count 428(H) 150 - 400 10*9/L 03/24/2024 9:01 PM [place] Red Cell Distribution Width CV 14.3(H) 11.7 - 14.2 % 03/24/2024 9:01 PM [place] NRBC Percent 0.0 <=0.0 % 03/24/2024 9:01 PM [place] NRBC Absolute 0.00 0 - 0.1 10*9/L 03/24/2024 9:01 PM [place] Neutrophil Percent 67.6 % 2024 9:01 PM [place] Lymphocyte Percent 19.8 % 2024 9:01 PM [place] Monocytes Percent 10.8 % 025 9:01 PM [place] Eosinophils Percent 0.6 % 03/24/2024 9:01 PM [place] Basophils Percent 0.3 % 025 9:01 PM [place] Immature Granulocytes Percent 0.9 % 03/24/2024 9:01 PM [place] Neutrophils Absolute 6.3 1.8 - 6.6 10*9/L 03/24/2024 9:01 PM [place] Lymphocyte Absolute 1.9 1.0 - 4.8 10*9/L 03/24/2024 9:01 PM [place] Monocytes Absolute 1.0(H) 0.2 - 0.9 10*9/L 03/24/2024 9:01 PM [place] Eosinophils Absolute 0.1 0.0 - 0.4 10*9/L 03/24/2024 9:01 PM [place] Basophils Absolute 0.0 0.0 - 0.2 10*9/L 03/24/2024 9:01 PM [place] Immature Granulocytes Absolute 0.1 0.0 - 0.1 10*9/L 03/24/2024 9:01 PM [place] Blood BLOOD SPECIMEN / Unknown Venipuncture / Unknown 03/24/2024 8:45 PM [facility] 03/24/2024 8:51 PM [facility] us Albin Weiss MD LAB BLOOD ORDERAB[place] [address] [place] [address], [facility] [phone] * Hepatic function panel (03/24/2024 8:45 PM [facility]) [facility] Alkaline Phosphatase Total 105 39 - 117 U/L 03/24/2024 9:24 PM [place] Aspartate Aminotransferase 12 12 - 39 U/L 03/24/2024 9:24 PM [place] Alanine Aminotransferase 12 7 - 52 U/L 03/24/2024 9:24 PM [place] Bilirubin Total 0.4 0.1 - 1.3 mg/dL 03/24/2024 9:24 PM [place] Bilirubin Direct 0.1 0.0 - 0.2 mg/dL 03/24/2024 9:24 PM [place] Bilirubin Indirect 0.3 0.0 - 1.0 mg/dL 03/24/2024 9:24 PM [place] Protein Total Serum/Plasma 6.6 6.4 - 8.9 g/dL 03/24/2024 9:24 PM [place] Albumin 3.9 3.5 - 5.7 g/dL 03/24/2024 9:24 PM [place] Blood BLOOD SPECIMEN / Unknown Venipuncture / Unknown 03/24/2024 8:45 PM [facility] 03/24/2024 8:54 PM [facility] Albin Weiss MD LAB BLOOD ORDERABLES [place] [address] [address], [facility] [phone] * Basic metabolic panel (03/24/2024 8:45 PM [facility]) [facility] Sodium Serum/Plasma 136 133 - 145 mmol/L 03/24/2024 9:24 PM [place] Potassium Serum/Plasma 4.0 3.5 - 5.1 mmol/L 03/24/2024 9:24 PM [place] Chloride Serum/Plasma 104 98 - 108 mmol/L 03/24/2024 9:24 PM [place] Carbon Dioxide 22 21 - 31 mmol/L 03/24/2024 9:24 PM [place] Glucose Serum/Plasma 91 70 - 199 mg/dL 03/24/2024 9:24 PM [place] Blood Urea Nitrogen 15 7 - 25 mg/dL 03/24/2024 9:24 PM [place] Creatinine Serum/Plasma 0.70 0.70 - 1.30 mg/dL 03/24/2024 9:24 PM [place] Estimated GFR >90 >=60 mL/min/1.7 3 square meters 03/24/2024 9:24 PM [place] Comment:The 2020 CKD-EPI cre atinine equation (IDMS-traceable) was used to approximate GFR. It's often unreliable when one is acutely ill or . This estimate assumes a regular diet and an average physique. Because estimated GFR can differ by more than 30% from measured GFR, consider ordering cystatin C to further assess kidney function or stage CKD if necessary. Calcium Serum/Plasma 8.9 8.6 - 10.3 mg/dL 03/24/2024 9:24 PM [place] Anion Gap 10 4 - 16 mmol/L 03/24/2024 9:24 PM [place] Blood BLOOD SPECIMEN / Unknown Venipuncture / Unknown 03/24/2024 8:45 PM [facility] 03/24/2024 8:54 PM [facility] us Albin Weiss MD LAB BLOOD ORDERAB[place] [address] [place] [address], [facility] [phone] * ECG (Electrocardiogram) 12 Lead (03/24/2024 8:01 PM [facility]) Ventricular Rate 127 bpm [facility] G Atrial Rate 147 ms [facility] ECG QRS Duration 96 ms [facility] ECG QT 306 ms [facility] ECG QTc 446 ms [facility] ECG R [place] 70 deg [facility] ECG T [place] 29 deg [facility] ECG 03/24/2024 8:01 PM MST Narrative [facility] - 03/24/2024 10:27 PM MST - ABNORMAL ECG - Atrial fibrillation Low voltage, extremity leads When compared with ECG of 24-Mar-2024 17:56:11, No significant change Reviewed and Interpreted by: Caitlin Basurto 24-Mar-2024 22:27:53 us Albin Weiss MD MUSE ORDERABLES Final Result Performing Organization Address [facility] Co de Phone Number [facility] [employer] [address] [place] [address] * ECG (Electrocardiogram) 12 Lead (03/24/2024 5:56 PM [facility]) Ventricular Rate 147 bpm [facility] G Atrial Rate 195 ms [facility] ECG QRS Duration 93 ms [facility] ECG QT 289 ms [facility] ECG QTc 452 ms [facility] ECG R [place] 63 deg [facility] ECG T [place] 9 deg [facility] 03/24/2024 5:56 PM MST Narrative [facility] - 03/24/2024 10:28 PM MST - ABNORMAL ECG - Atrial fibrillation Aberrant conduction of SV complex(es) When compared with ECG of 27-Apr-2022 21:57:24, Significant change in rhythm: previously sinus Reviewed and Interpreted by: Caitlin Basurto 24-Mar-2024 22:28:09 us Daya Silverman MD MUSE ORDERABLES F inal Result Performing Organization Address City/[facility]/ZIP Co de Phone Number [facility] [employer] [address] * (ABNORMAL) Lipid Panel (10/23/2016 10:49 AM MDT) Triglycerides 72 48 - 149 mg/dL 10/23/2016 11:45 AM [facility] [place] Comment: The NCEP Adult Treatment Panel III suggests that a fasting triglyceride level of <150 mg/dL is Normal and 150-199 is Borderline-high. ? Cholesterol 133(L) 136 - 239 mg/dL 10/23/2016 11:45 AM [facility] [place] Comment: Per NCEP Adult Treatment Panel III suggestions: <200 mg/dL is Desirable; 200-239 mg/dL is Borderline High; >=240 mg/dL is High. HDL 41 40 - 59 mg/dL 10/23/2016 11:45 AM [facility] [place] Comment: The HDL-C reference range is based on NCEP Adult Treatment Panel III suggestions. LDL Calculated 77 57 - 159 mg/dL 10/23/2016 11:45 AM [facility] [place] Comment: LDL-C greater than 159 mg/dL was designated as High by the NCEP Adult Treatment Panel III. ??In the 2013 ACC/AHA Blood Cholesterol Guideline specific LDL-C targets are not recommended. Non HDL 92 0 - 160 mg/dL 10/23/2016 11:45 AM [facility] [place] Comment: In persons with high serum triglycerides the non-HDL cholesterol goal can be 30 mg/dL greater than the LDL cholesterol goal, per NCEP ATPIII. Blood BLOOD SPECIMEN / Unknown Venipuncture / Unknown 10/23/2016 10:49 AM [facility] 10/23/2016 11:01 AM [facility] us Maxine Oshea MD LAB BLOOD ORDERABLES [place] [address] [place] [address], [facility] [phone] from Last 3 Months or Most Recently Relevant to Health Maintenance Insurance MEDICAID [facility] [place] [employer]- [id number] 6&7 Advance Directives Documents on File Type Date Recorded Patient Manager Of Creative Services Expl anation Advance Directives - Medical Durable Power of Occupational Therapy Department Chair 04/28/2022 6:11 AM * Full Code (Latest Code Status on File) Date Activated Date Inactivated Comments 03/23/2023 6:57 PM 03/24/2023 8:36 AM * Full Code Date Activated Date Inactivated Comments 04/28/2022 2:01 AM 04/28/2022 9:15 AM * DNR/DNI Date Activated Date Inactivated Comments 04/25/2022 5:56 PM 04/26/2022 10:02 AM Question Answer Comments Code status based on: Discussion with patient Protocol Document: https://[facility].policystat.c om/policy/25619372/latest * Full Code Date Activated Date Inactivated Comments 04/25/2022 5:33 PM 04/25/2022 5:56 PM * Full Code Date Activated Date Inactivated Comments 04/23/2022 5:49 PM 04/24/2022 10:19 AM Care Teams Animal Herder Relationship Specialty Start Date End Date Asked, Margaux . PCP - General Internal Medicine 04/23/22
--- OUTSIDE RECORDS SUMMARY | 2024-06-01 02:36 | XMS_ITS | Clinical Summary ---
Author Organization [facility] Address [address] [place] [address], [address] [place] [address] Care Team Providers Care Training Lead Name Role Phone None, Pcp Primary Care Provider Unavailabl e Source Comments [facility] (Labor and Delivery) documents do not appear in the Encounter Summary [facility] Allergies Active Allergy Reactions Criticality Noted Date Comments Adhesive Rash High 01/10/2013 Itching Diphenhydramine Hcl Other (See Comments) 2023 Becomes stiff Ketorolac Tromethamine Rash High 01/10/2013 Reported angioedema/resp failure with last use Tramadol Unknown 01/10/2013 Medications * Please verify current medications with patient. aspirin (ECOTRIN) 81 mg delayed release tablet Take 81 mg by mouth once a day with breakfast Active atorvastatin (LIPITOR) 20 mg tablet Take 20 mg by mouth once a day Active metoprolol succinate (TOPROL-XL) 50 mg Oral ER tablet Take 100 mg by mouth in the morning and 100 mg before bedtime. Active rivaroxaban (XARELTO) 20 mg tab tablet Take 20 mg by mouth once a day Active amoxicillin (AMOXIL) 500 mg capsule Take 500 mg by mouth every eight hours Active methIMAzole (TAPAZOLE) 5 mg tablet Take 2 tablets (10 mg) by mouth once a day 28 each Active Active Problems Problem Noted Date Diagnosed Date Dental infection 03/23/2024 Syncope 11/21/2023 CAD (coronary artery disease) 11/17/2023 Complex psychiatric condition 11/17/2023 Tobacco use disorder 11/17/2023 Narcotic abuse 11/17/2023 Stroke-like symptoms 11/11/2023 Atrial fibrillation with rapid ventricular respo nse 11/11/2023 PTSD (post-traumatic stress disorder) 11/11/2023 Intermittent explosive disorder 11/11/2023 Suicidal ideation 01/16/2016 Chest pain, non-cardiac 01/16/2016 Left-sided weakness 01/16/2016 Homelessness 01/16/2016 ACS (acute coronary syndrome) 09/05/2015 Anxiety 09/05/2015 Chest pain 01/10/2013 Resolved Problems Problem Noted Date Diagnosed Date Resolved Date Atypical chest pain 08/10/2014 09/05/19 16 Encounters Date Type Department Care Team Description 03/23/2024 3:09 PM [facility] - 03/24/2024 6:58 AM [facility] Emergency [facility] - Cardiovascular Surgery [address] [place] [address] Coby Muñiz MD Sager, Ashley, DEPUTY HEAD Debo, Álvaro Washington, DO Simmons, Anna Marie Hector, DO Cobb, DO Julian Discharge Disposition: Left Against Medical Advice 03/23/2024 Travel from Last 3 Months Family History Medical History Relation Comments Heart Disease Father Stroke Father Cancer Mother Relation Status Comments Father Mother Social History Tobacco Use Types Packs/Day Years Used Date Smoking Tobacco: Every Day Cigarettes 0.5 30 Started: 04/08/1984; Last attempted to quit: 04/08/2014 Smokeless Tobacco: Never Tobacco Cessation:Ready to Q uit: Not Asked; Counseling Given: Not Answered Alcohol Use Standard Drinks/Week Comments Not Currently 0 (1 standard drink = 0.6 oz pur e alcohol) PHQ-2 Answer Date Recorded Total-See Row Information 0 2023 Hunger Vital Sign Answer Date Recorded Within the past 12 months, y ou worried that your food would run out before you got the money to buy more. Never true 03/23/19 25 Within the past 12 months, t he food you bought just didn't last and you didn't have money to get more. Never true 03/23/2024 PRAPARE - Transportation Answer Date Re corded In the past 12 months, has l ack of transportation kept you from medical appointments or from getting medications? No 03/08 In the past 12 months, has l ack of transportation kept you from meetings, work, or from getting things needed for daily living? No 03/23/2024 Housing Stability Vital Sign Answer Kendell e Recorded In the last 12 months, was t here a time when you were not able to pay the mortgage or rent on time? Patient declined 03/23/19 25 In the past 12 months, how m any times have you moved where you were living? Not on file 03/23/2024 At any time in the past 12 m [facility], were you homeless or living in a jail (including now)? Patient declined 03/23/2024 Financial Resource Strain Answer Date R ecorded Is it difficult to pay utili ty bills such as heating, water, electricity or pay for medical bills and prescriptions? Not hard at all 03/23/2024 Alcohol / Substance Use Answer Date Rec orded Do you drink alcohol, use ma rijuana, or other substances? Yes 03/23/2024 In the past 3 months how oft en did you have 5 or more drinks on one occasion? 0 03/23/2024 In the past 3 months how man y drinks containing alcohol did you have on a typical day when you were drinking? 0 03/23/2024 In the past 3 months how oft en did you have a drink containing alcohol? 0 03/23/2024 Total Alcohol Score 0 03/23/2024 Alcohol Screening Result negative 025 In the past 3 months how oft en have you used marijuana? 4 (high positive) 03/23/2024 In the past 3 months how oft en have you used an illegal drug or a prescription medications for non-medical reasons? 0 (negative) 03/23/2024 Interpersonal Abuse / Violence Answer D ate Recorded Have you been afraid, humili ated, emotionally abused, neglected, or controlled? Patient Refused 03/23/2024 Have you been kicked, hit, s lapped, or otherwise physically hurt? Patient Refused 03/23/2024 Have you been raped or force d to have any kind of sexual activity without your consent? Patient Refused 03/23/2024 Sex and Gender Information Value Date Recorded Sex Assigned at Male 11/15/2023 6:27 PM MDT Legal Sex Male 12:32 PM IGLESIA Gender Identity Male 11/15/2023 6:27 PM MDT Sexual Orientation Straight 11/15/2023 6: 27 PM MDT Last Filed Vital Signs Vital Sign Reading Time Taken Comments Blood Pressure 98/68 03/24/2024 5:48 AM MST Pulse 114 03/24/2024 5:48 AM MST Temperature 36.9 ??C (98.4 ??F) 03/24/2024 5:48 AM MS T Respiratory Rate 18 03/24/2024 5:48 AM MST Oxygen Saturation 94% 03/24/2024 5:48 AM MST Inhaled Oxygen Concentration - - Weight 77.9 kg (171 lb 11.8 oz) 03/24/2024 5:48 AM MST Height 188 cm (6' 2 ) 03/24/2024 5:48 AM MST Body Mass Index 22.05 03/24/2024 5:48 AM MST Plan of Treatment Health Maintenance Due Date Last Done Comments Hepatitis C Screening 1970 Hepatitis B Vaccine (1 of 3 - 19+ 3-dose series) 10/13/1991 Pneumococcal Vaccine: Pediatrics (0 to 5 Years) and At-Risk Patients (6 to 64 Years) (1 of 2 - PCV) 10/13/1991 Tetanus Diphtheria and Pertussis Vaccines (1 - Tdap) 10/13/1991 CT Colonography 2017 Colon Cancer Screening 2017 Colonoscopy 2017 DNA-based stool test (Cologuard) 2017 Sigmoidoscopy 2017 gFOBT or FIT 2017 Zoster Vaccines (1 of 2) 2022 COVID-19 Vaccine ( - 2023-2 5 season) 2023 Influenza Vaccine (Season Ended) 2024 Retired: TSH Level 03/23/2025 03/23/2024, 11/17/2023, 11/11/2023 Retired: Lipid Panel 11/10/2028 11/11/2023 RSV Vaccines (1 - 1-dose 75+ series) 10/13/2047 HIV Screening Completed 05/17/2018, 09/04/2017 HPV Vaccine Aged Out No longer eligi ble based on patient's age to complete this topic Hepatitis A Vaccine Aged Out No longe r eligible based on patient's age to complete this topic Hib Vaccine Aged Out No longer eligi ble based on patient's age to complete this topic IPV Vaccine Aged Out No longer eligi ble based on patient's age to complete this topic Meningococcal B Vaccine Aged Out No l onger eligible based on patient's age to complete this topic Meningococcal Vaccine (MCV4) Aged Out No longer eligible based on patient's age to complete this topic Rotavirus Vaccine Aged Out No longer eligible based on patient's age to complete this topic Procedures Procedure Name Priority Date/Time Associated Diagnosis Comments BASIC METABOLIC PANEL Routine 03/24/2024 5:23 AM MST CBC WITH DIFFERENTIAL Routine 03/24/2024 5:23 AM MST SURGICAL CARE WELCOME Routine 03/23/2024 9:53 PM MST Atrial fibrillation with rapid ventricular response (CMS-HCC) T4, FREE, DIRECT STAT 03/23/2024 4:52 PM MST PHOSPHORUS Routine 03/23/2024 4:52 PM MST MAGNESIUM Routine 03/23/2024 4:52 PM MST TSH WITH REFLEX TO FREE T4 STAT 03/23/2024 4:52 PM MST TROPONIN I, 5TH GEN, SUBSEQUENT (REFLEX 1HR) Timed STAT 03/23/2024 4:52 PM MST 12 LEAD EKG STAT 03/23/2024 4:47 PM MST XR CHEST PORTABLE 1 VIEW STAT 03/23/2024 4:09 PM MST NT PROBRAIN NATRIURETIC PEPTIDE STAT 03/23/2024 3:44 PM MST TROPONIN I, 5TH GEN, BASELINE (FOR OSQ THAT REFLEXES 1HR) STAT 03/23/2024 3:44 PM MST BASIC METABOLIC PANEL STAT 03/23/2024 3:44 PM MST CBC WITH DIFFERENTIAL STAT 03/23/2024 3:44 PM MST 12 LEAD EKG STAT 03/23/2024 3:16 PM MST LIPID PANEL Routine 11/11/2023 11:18 AM MDT from Last 3 Months or Most Recently Relevant to Health Maintenance Results * (ABNORMAL) CBC with Differential (03/24/2024 5:23 AM [facility]) Only the most recent of2 resultswithin the time period is included. WBC 6.12 3.50 - 11.50 K/uL LAB HEMATOLOGY METHOD 03/24/2024 5:54 AM [facility] RBC 4.97 4.30 - 6.10 M/uL LAB HEMATOLOGY METHOD 03/24/2024 5:54 AM [facility] Hemoglobin 14.0 14.0 - 18.0 g/dL LAB HEMATOLOGY METHOD 03/24/2024 5:54 AM [facility] Hematocrit 42.7 40.0 - 54.0 % LAB HEMATOLOGY METHOD 03/24/2024 5:54 AM [facility] MCV 86 80 - 102 fL LAB HEMATOLOGY METHOD 03/24/2024 5:54 AM [facility] MCH 28.2 26.0 - 36.0 pg LAB HEMATOLOGY METHOD 03/24/2024 5:54 AM [facility] MCHC 32.8 30.0 - 37.0 g/dL LAB HEMATOLOGY METHOD 03/24/2024 5:54 AM [facility] RDW Coefficient of Variation 14.3 10.0 - 15.5 % LAB HEMATOLOGY METHOD 03/24/2024 5:54 AM [facility] Platelet Count 418(H) 150 - 400 K/uL LAB HEMATOLOGY METHOD 03/24/2024 5:54 AM [facility] MPV 9.4 8.6 - 12.3 fL LAB HEMATOLOGY METHOD 03/24/2024 5:54 AM [facility] Nucleated RBC, Percent 0.0 <=0.0 /100 WBCs LAB HEMATOLOGY METHOD 03/24/2024 5:54 AM [facility] Neutrophil % 54.1 % LAB HEMATOLOGY METHOD 03/24/2024 5:54 AM [facility] Neutrophils, Absolute 3.31 2.00 - 8.00 K/uL LAB HEMATOLOGY METHOD 03/24/2024 5:54 AM [facility] Lymphocyte % 30.7 % LAB HEMATOLOGY METHOD 03/24/2024 5:54 AM [facility] Lymphocytes, Absolute 1.88 0.60 - 5.20 K/UL LAB HEMATOLOGY METHOD 03/24/2024 5:54 AM [facility] Monocyte % 12.1 % LAB HEMATOLOGY METHOD 03/24/2024 5:54 AM [facility] Monocytes, Absolute 0.74 0.00 - 1.00 K/uL LAB HEMATOLOGY METHOD 03/24/2024 5:54 AM [facility] Eosinophil % 2.5 % LAB HEMATOLOGY METHOD 03/24/2024 5:54 AM [facility] Eosinophils, Absolute 0.15 0.00 - 0.80 K/uL LAB HEMATOLOGY METHOD 03/24/2024 5:54 AM [facility] Basophil % 0.3 % LAB HEMATOLOGY METHOD 03/24/2024 5:54 AM [facility] Basophils, Absolute 0.02 0.00 - 0.20 K/UL LAB HEMATOLOGY METHOD 03/24/2024 5:54 AM [facility] Granulocytes, Immature, % 0.3 % LAB HEMATOLOGY METHOD 03/24/2024 5:54 AM [facility] Granulocyte, Immature, Absolute 0.02 0.00 - 0.09 K/UL LAB HEMATOLOGY METHOD 03/24/2024 5:54 AM [facility] Blood Venipuncture / Unknown 03/24/2024 5:23 AM [facility] 03/24/2024 5:38 AM [facility] us Diann Tomas DO LAB BLOOD ORDERABLES F inal Result [facility] ([place] [place] [address] [place] [id number] [phone] * (ABNORMAL) Basic Metabolic Panel (03/24/2024 5:23 AM [facility]) Only the most recent of2 resultswithin the time period is included. Sodium 137 136 - 145 mmol/L LAB CHEMISTRY METHOD 03/24/2024 6:15 AM [facility] Potassium 4.8 3.4 - 5.1 mmol/L LAB CHEMISTRY METHOD 03/24/2024 6:15 AM [facility] Chloride 110 101 - 112 mmol/L LAB CHEMISTRY METHOD 03/24/2024 6:15 AM [facility] CO2 23 20 - 31 mmol/L LAB CHEMISTRY METHOD 03/24/2024 6:15 AM [facility] Anion Gap 4(L) 5 - 15 mmol/L LAB CHEMISTRY METHOD 03/24/2024 6:15 AM [facility] BUN 18 9 - 23 mg/dL LAB CHEMISTRY METHOD 03/24/2024 6:15 AM [facility] Creatinine 0.71 0.70 - 1.30 mg/dL LAB CHEMISTRY METHOD 03/24/2024 6:15 AM [facility] eGFR 111 >=60 mL/min/1.7 3 m2 LAB CHEMISTRY METHOD 03/24/2024 6:15 AM [facility] Comment: GFR < 60 suggests chronic kidney disease GFR < 15 suggests kidney failure Calculated using CKD-EPI (2020) equation, which has not been validated on patients <18 years of age. Race is no longer included as a factor. BUN/Creatinine Ratio 25 9 - 27 mg/mg LAB CHEMISTRY METHOD 03/24/2024 6:15 AM [facility] Glucose 98 74 - 106 mg/dL LAB CHEMISTRY METHOD 03/24/2024 6:15 AM [facility] Comment: Random serum glucose over 200 mg/dL diagnostic of diabetes. ??Fasting glucose over 125 mg/dL diagnostic of diabetes. Calcium 9.2 8.7 - 10.4 mg/dL LAB CHEMISTRY METHOD 03/24/2024 6:15 AM [facility] Blood Venipuncture / Unknown 03/24/2024 5:23 AM MST 03/24/2024 5:38 AM [facility] us Diann Tomas DO LAB BLOOD ORDERABLES F inal Result [facility] [place] [address] [place] [id number] [phone] * Surgical Care Welcome (03/23/2024 9:53 PM [facility]) Video Viewed VIEWED GET [facility]LL 03/23/2024 9:53 PM [facility] Physician Inpatient PATIENT EDUCATION VIDEO O RDERS Final Result GET WELL * Troponin I, 5th Gen, Subsequent (03/23/2024 4:52 PM [facility]) Pathologist [facility] Troponin I, 5th Generation 3 <=53 ng/L ng/L LAB IMMUNOLOGY METHOD 03/23/2024 5:24 PM [facility] Comment: Troponin results should be interpreted in the context of all other available information. Troponin assay has changed from 4th Generation to 5th Generation and will be resulted in whole numbers (ng/L). The reference range has also changed to sex-specific cutoff values of 34 ng/l for females and 53 ng/L for males. ??If the baseline result is below the 99th percentile value, at least one additional blood sample should be drawn before results are interpreted as negative for AMI. Patients who present with signs and symptoms suggestive of ACS should have troponin results interpreted in conjunction with clinical presentation, HEART or ERICA scores, EKG, imaging, etc. Baseline and serial troponin elevation for significant delta will assist the clinician in differentiating between ischemic and non-ischemic causes of myocardial injury. Biotin (Vitamin B7) can potentially interfere with troponin levels by causing false low results. Screen patients taking supplements containing Biotin greater than 300mg/day including vitamin supplements, [id number] supplements, and biotin supplements. Absolute Troponin Delta 0 <=11 ng/L LAB IMMUNOLOGY METHOD 03/23/2024 5:24 PM [facility] % Troponin Delta 0 <50 % LAB IMMUNOLOGY METHOD 03/23/2024 5:24 PM [facility] Blood VENOUS LINE / Unknown Venipuncture / Unknown 03/23/2024 4:52 PM [facility] 03/23/2024 4:55 PM [facility] Coby Muñiz MD LAB BLOOD ORDERABLES Final R esult [facility] ([place] [place] [id number] [place] [address] * (ABNORMAL) TSH with Reflex to Free T4 (03/23/2024 4:52 PM [facility]) [facility] TSH <0.010(L) 0.550 - 4.780 uIU/mL LAB IMMUNOLOGY METHOD 03/23/2024 9:49 PM [facility] Blood VENOUS LINE / Unknown Venipuncture / Unknown 03/23/2024 4:52 PM [facility] 03/23/2024 4:55 PM [facility] [employer] LAB BLOOD ORDERABLES F inal Result Performing Organization Address City/[facility] Co de Phone Number [facility] [place] [address] [phone] * (ABNORMAL) T4, Free, Direct (03/23/2024 4:52 PM [facility]) [facility] FT4 (Thyroxine) 2.61(H) 0.89 - 1.76 ng/dL LAB IMMUNOLOGY METHOD 03/23/2024 10:47 PM [facility] Blood VENOUS LINE / Unknown Venipuncture / Unknown 03/23/2024 4:52 PM [facility] 03/23/2024 4:55 PM [facility] [employer] LAB BLOOD ORDERABLES F inal Result Performing Organization Address [facility] Co de Phone Number [facility] [place] [address] [phone] * Phosphorus (03/23/2024 4:52 PM [facility]) [facility] Phosphorus 3.7 2.4 - 5.1 mg/dL LAB CHEMISTRY METHOD 03/23/2024 10:47 PM [facility] Blood VENOUS LINE / Unknown Venipuncture / Unknown 03/23/2024 4:52 PM [facility] 03/23/2024 4:55 PM [facility] [employer] LAB BLOOD ORDERABLES F inal Result Performing Organization Address City/[facility] Co de Phone Number [facility] [place] [address] [place] [address], [facility] [place] [phone] * Magnesium (03/23/2024 4:52 PM MST) Magnesium 1.8 1.6 - 2.6 mg/dL LAB CHEMISTRY METHOD 03/23/2024 10:[address] [facility] [place] Blood VENOUS LINE / Unknown Venipuncture / Unknown 03/23/2024 4:52 PM MST 03/23/2024 4:55 PM MST us Diann Tomas DO LAB BLOOD ORDERABLES F inal Result [facility] [place] [address] [phone] * Rapid EKG STAT - 1 Hr (03/23/2024 4:47 PM MST) Only the most recent of2 resultswithin the time period is included. 03/23/2024 4:47 PM MST Narrative [facility] EKG - 03/23/2024 6:33 PM MST ? [facility] ? Test Date: ?2024-03-23 16:47:23 Pat Name: ? BOUBACAR DEGARMO ? Department: ? Room: ? ED33 Gender: ? M ?Ring Barker Operator: ?? Mo : ?1970 ? Requested By: COBY MUÑIZ Order Number: [id number] ?[place] MD: ?? Beltran Amol ? Measurements Intervals ?[place] ? Rate: ? 100 ?P: ?0 KS: ? 0 ?QRS: ?50 QRSD: ? 100 ?T: ?30 QT: ? 330 ? QTc: ?427 ? Interpretive Statements Atrial fibrillation with rapid ventricular response Compared to ECG 03/23/2024 15:16:24 No significant change was found Electronically Signed On 03-23-2024 18:33:03 MST by Beltran Carmichael Procedure Note Beltran Carmichael MD - 03/23/2024 [facility] Test Date: 2024-03-23 16:47:23 Pat Name: BOUBACAR LENTZ Department: Room: ED33 Gender: M Ring Barker Operator: Dell : 1970 Requested By: COBY MUÑIZ Order Number: [id number] [place] MD: Beltran Carmichael Measurements Intervals [place] Rate: 100 P: 0 KS: 0 QRS: 50 QRSD: 100 T: 30 QT: 330 QTc: 427 Interpretive Statements Atrial fibrillation with rapid ventricular response Compared to ECG 03/23/2024 15:16:24 No significant change was found Electronically Signed On 03-23-2024 18:33:03 MST by Beltran Carmichael us Coby Muñiz MD ECG/EKG ORDERABLES Final Res ult [facility] EKG * XR Chest Portable 1 View (03/23/2024 4:09 PM MST) Anatomical Region Laterality Modality Chest Computed Radiogr aphy Narrative 03/23/2024 4:17 PM MST EXAMINATION: XR CHEST PORTABLE 1 VIEW ?? DATE OF EXAM: 03/23/2024 3:46 PM HISTORY: Chest pain COMPARISON: None. FINDINGS: Transcutaneous defibrillator pads are present over the mid left lower chest at the level the diaphragm and along the left lateral lung over the left costophrenic angle. However, allowing for this limitation I see no obvious infiltrate or abnormality of the left or right lungs. Normal inflation appears normal allowing for AP portable upright technique. Heart size is normal. Normal appearance the mediastinum and hilar regions. Bony structures are age-appropriate/intact. IMPRESSION: 1. ??No acute findings in the chest allowing for AP portable upright technique. Thank you for the referral of this patient. This exam was interpreted by an [place] [employer] [employer] board certified radiologist with additional board certification by the [place] [employer]. If there are any questions regarding this exam please feel free to contact me directly at [phone] at our center in [place] or our national office at [phone]. This report was created with voice recognition software. A reasonable attempt was made to correct any misrecognized words and phrases. Electronically signed by: ??Blayne Marroquin MD 03/23/2024 4:17 PM Procedure Note Blayne Marroquin MD - 03/23/2024 EXAMINATION: XR CHEST PORTABLE 1 VIEW DATE OF EXAM: 03/23/2024 3:46 PM HISTORY: Chest pain COMPARISON: None. FINDINGS: Transcutaneous defibrillator pads are present over the mid left lower chest at the level the diaphragm and along the left lateral lung over the left costophrenic angle. However, allowing for this limitation I see no obvious infiltrate or abnormality of the left or right lungs. Normal inflation appears normal allowing for AP portable upright technique. Heart size is normal. Normal appearance the mediastinum and hilar regions. Bony structures are age-appropriate/intact. IMPRESSION: 1. No acute findings in the chest allowing for AP portable upright technique. Thank you for the referral of this patient. This exam was interpreted by an [place] [employer] board certified radiologist with additional board certification by the [place]. If there are any questions regarding this exam please feel free to contact me directly at [phone] at our center in [place] or our national office at [phone]. This report was created with voice recognition software. A reasonable attempt was made to correct any misrecognized words and phrases. Electronically signed by: Blayne Marroquin MD 03/23/2024 4:17 PM us Coby Muñiz MD DIAGNOSTIC IMAGING ORDERABLE S Final Result * Troponin, 5th generation, baseline and 1 hour (03/23/2024 3:44 PM [facility]) Troponin I, 5th Generation 3 <=53 ng/L ng/L LAB IMMUNOLOGY METHOD 03/23/2024 4:23 PM [facility] Comment: Troponin results should be interpreted in the context of all other available information. Troponin assay has changed from 4th Generation to 5th Generation and will be resulted in whole numbers (ng/L). The reference range has also changed to sex-specific cutoff values of 34 ng/l for females and 53 ng/L for males. ??If the baseline result is below the 99th percentile value, at least one additional blood sample should be drawn before results are interpreted as negative for AMI. Patients who present with signs and symptoms suggestive of ACS should have troponin results interpreted in conjunction with clinical presentation, HEART or ERICA scores, EKG, imaging, etc. Baseline and serial troponin elevation for significant delta will assist the clinician in differentiating between ischemic and non-ischemic causes of myocardial injury. Biotin (Vitamin B7) can potentially interfere with troponin levels by causing false low results. Screen patients taking supplements containing Biotin greater than 300mg/day including vitamin supplements, [id number] supplements, and biotin supplements. Blood VENOUS LINE / Unknown Venipuncture / Unknown 03/23/2024 3:44 PM [facility] 03/23/2024 3:50 PM [facility] us Coby Muñiz MD LAB BLOOD ORDERABLES Final R esult [facility] ([place], [place]) LABORATORY [facility] [address] [phone] * (ABNORMAL) NT Probrain Natriuretic Peptide (03/23/2024 3:44 PM [facility]) NT Probrain Natriuretic Peptide 599(H) <125 pg/mL LAB IMMUNOLOGY METHOD 03/23/2024 4:23 PM [facility] Comment: Negative - heart failure unlikely: ??All ages: <300 pg/mL Torres Zone - indeterminate, consider other reasons for NT-proBNP elevation: ??<50 years old: 300-450 pg/mL ??50-75 years old: 300-900 pg/mL ??>75 years old: 300-1800 pg/mL Positive - heart failure likely: ??<50 years old: >450 pg/mL ??50-75 years old: >900 pg/mL ??>75 years old: >1800 pg/mL Elevated or depressed natriuretic peptide values can be caused by conditions which may confound the diagnosis of heart failure. In the ED, conditions such as chronic heart failure, acute coronary syndrome, atrial fibrillation, pulmonary embolism, valvular heart disease, myocarditis, pulmonary hypertension, renal insufficiency, stroke, and sepsis can elevate NT-proBNP levels in the absence of acute heart failure. In addition, obesity, flash pulmonary edema, pericarditis and cardiac tamponade are associated with reduced NT-proBNP levels. Blood VENOUS LINE / Unknown Venipuncture / Unknown 03/23/2024 3:44 PM MST 03/23/2024 3:50 PM [facility] us Coby Muñiz MD LAB BLOOD ORDERABLES Final R esult [facility] ([place], [place]) LABORATORY [address] [place] [id number], [facility] [place] [phone] * Lipid Panel (11/11/2023 11:18 AM MDT) Pathologist [facility] Cholesterol, Total 111 <200 mg/dL LAB CHEMISTRY METHOD 11/11/2023 3:47 PM MDT [facility] Comment: National Cholesterol Education Guidelines (NCEP, June 2000): <200 mg/dL ? Desirable 200-239 mg/dL ??Borderline Risk >=240 mg/dL ? High Risk Triglycerides 49 <150 mg/dL LAB CHEMISTRY METHOD 11/11/2023 3:47 PM MDT [facility] Comment: National Cholesterol Education Guidelines (NCEP, June 2000): <150 mg/dL ? Normal Triglycerides 150-199 mg/dL ?Borderline High Triglycerides 200-499 mg/dL ?High Triglycerides > or =500 mg/dL ??Very High Triglycerides HDL Cholesterol 48 >=40 mg/dL LAB CHEMISTRY METHOD 11/11/2023 3:47 PM MDT [facility] LABORATORY LDL Cholesterol, Calc 53 See Comment mg/dL 11/11/2023 3:47 PM MDT [employer]ORY Comment: National Cholesterol Education Guidelines (NCEP, June 2000): <100 mg/dL ? Optimal 100-129 mg/dL ?Near Optimal 130-159 mg/dL ?Borderline High 160-189 mg/dL ?High > or =190 mg/dL ??Very High Non-HDL Cholesterol 63 See Comment mg/dL 11/11/2023 3:47 PM MDT [facility] LABORATORY Comment: National Cholesterol Education Guidelines (NCEP, June 2000): <130 mg/dL ? Desirable 130-159 mg/dL ?Above Desirable 160-189 mg/dL ?Borderline High 190-219 mg/dL ?High > or =220 mg/dL ??Very High Blood VENOUS LINE / Unknown Venipuncture / Unknown 11/11/2023 11:18 AM MDT 11/11/2023 11:21 AM MDT Loretta Hall NP LAB BLOOD ORDERABLES Final Result Performing Organization Address City/State/[facility] Co de Phone Number [facility] LABORATORY [address] [phone] from Last 3 Months or Most Recently Relevant to Health Maintenance [facility] [employer] [employer] [facility] [place] MEDICA[place] Advance Directives * Full Code (Latest Code Status on File) Date Activated Date Inactivated Comments 03/23/2024 9:57 PM 03/24/2024 9:03 AM * Full Code Date Activated Date Inactivated Comments 11/21/2023 7:03 PM 11/22/2023 7:00 AM * Full Code Date Activated Date Inactivated Comments 11/17/2023 2:15 PM 11/18/2023 11:46 AM * Full Code Date Activated Date Inactivated Comments 11/15/2023 6:18 PM 11/16/2023 9:27 AM * Full Code Date Activated Date Inactivated Comments 11/11/2023 3:27 PM 11/12/2023 9:32 AM Care Teams Training Lead Relationship Specialty Start Date End Date None, Pcp, MD PCP - General Other or Unknown Specialty 01/10/13
--- OUTSIDE RECORDS SUMMARY | 2024-06-01 02:36 | XMS_ITS | Referral Summary ---
Author Organization [facility] Address [facility] [address], [address] [place] [address] Care Team Providers Care Campus Receptionist Name Role Phone None, Pcp Primary Care Provider Unavailabl e Source Comments [facility] (Labor and Delivery) documents do not appear in the Encounter Summary [facility] Encounters Date Type Department Care Team Description 03/23/2024 3:09 PM [facility] - 03/24/2024 6:58 AM [facility] Emergency [facility] - Cardiovascular Surgery [address] [place] [address] Coby Muñiz MD Sager, Ashley, [facility] Debo, Álvaro Washington, DO Simmons, Anna Marie Hector, DO Cobb, DO Julian Discharge Disposition: Left Against Medical Advice 03/23/2024 Travel from Last 3 Months Allergies Active Allergy Reactions Criticality Noted Date [...] Date Atypical chest pain 08/10/2014 09/05/19 16 Social History Tobacco Use Types Packs/Day Years [...] any time in the past 12 m [facility], were you homeless or living in a intermediate (including now)? Patient declined 03/23/2024 Financial Resource [...] PM MDT Legal Sex Male 12:32 PM [facility] Gender Identity Male 11/15/2023 6:27 PM MDT Sexual Orientation Straight 11/15/2023 6: 27 PM MDT Last Filed Vital Signs Vital Sign Reading Time Taken Comments Blood Pressure 98/68 03/24/2024 5:48 AM [facility] Pulse 114 03/24/2024 5:48 AM MST Temperature [...] 03/24/2024 5:48 AM MST Plan of Treatment Not on file Procedures Procedure Name Priority Date/Time Associated Diagnosis [...] (ABNORMAL) CBC with Differential (03/24/2024 5:23 AM [facility]) Only the most recent of2 resultswithin the time period is included. WBC 6.12 3.50 - 11.50 K/uL LAB HEMATOLOGY METHOD 03/24/2024 5:54 AM [facility] LABORATORY RBC 4.97 4.30 - 6.10 M/uL LAB HEMATOLOGY METHOD 03/24/2024 5:54 AM [facility] Hemoglobin 14.0 14.0 - 18.0 g/dL LAB HEMATOLOGY METHOD 03/24/2024 5:54 AM [facility] Hematocrit 42.7 40.0 - 54.0 % LAB HEMATOLOGY METHOD 03/24/2024 5:54 AM [facility] MCV 86 80 - 102 fL LAB HEMATOLOGY METHOD 03/24/2024 5:54 AM [facility] MCH 28.2 26.0 - 36.0 pg LAB HEMATOLOGY METHOD 03/24/2024 5:54 AM [facility] MCHC 32.8 30.0 - 37.0 g/dL LAB HEMATOLOGY METHOD 03/24/2024 5:54 AM [facility] RDW Coefficient of Variation 14.3 10.0 - 15.5 % LAB HEMATOLOGY METHOD 03/24/2024 5:54 AM [facility] Platelet Count 418(H) 150 - 400 K/uL LAB HEMATOLOGY METHOD 03/24/2024 5:54 AM [facility] MPV 9.4 8.6 - 12.3 fL LAB HEMATOLOGY METHOD 03/24/2024 5:54 AM [facility] Nucleated RBC, Percent 0.0 <=0.0 /100 WBCs LAB HEMATOLOGY METHOD 03/24/2024 5:54 AM [facility] Neutrophil % 54.1 % LAB HEMATOLOGY METHOD 03/24/2024 5:54 AM [facility] Neutrophils, Absolute 3.31 2.00 - 8.00 K/uL LAB HEMATOLOGY METHOD 03/24/2024 5:54 AM [facility] Lymphocyte % 30.7 % LAB HEMATOLOGY METHOD 03/24/2024 5:54 AM [facility] Lymphocytes, Absolute 1.88 0.60 - 5.20 K/UL LAB HEMATOLOGY METHOD 03/24/2024 5:54 AM [facility] Monocyte % 12.1 % LAB HEMATOLOGY METHOD 03/24/2024 5:54 AM [facility] Monocytes, Absolute 0.74 0.00 - 1.00 K/uL LAB HEMATOLOGY METHOD 03/24/2024 5:54 AM [facility] Eosinophil % 2.5 % LAB HEMATOLOGY METHOD 03/24/2024 5:54 AM [facility] Eosinophils, Absolute 0.15 0.00 - 0.80 K/uL LAB HEMATOLOGY METHOD 03/24/2024 5:54 AM [facility] Basophil % 0.3 % LAB HEMATOLOGY METHOD 03/24/2024 5:54 AM [facility] Basophils, Absolute 0.02 0.00 - 0.20 K/UL LAB HEMATOLOGY METHOD 03/24/2024 5:54 AM [facility] Granulocytes, Immature, % 0.3 % LAB HEMATOLOGY METHOD 03/24/2024 5:54 AM [facility] Granulocyte, Immature, Absolute 0.02 0.00 - 0.09 K/UL LAB HEMATOLOGY METHOD 03/24/2024 5:54 AM [facility] Blood Venipuncture / Unknown 03/24/2024 5:23 AM [facility] 03/24/2024 5:38 AM [facility] us Diann Tomas DO LAB BLOOD ORDERABLES F inal Result [facility] [address] [place], [place] [id number], [place] [phone] * (ABNORMAL) Basic Metabolic Panel (03/24/2024 5:23 AM [facility]) Only the most recent of2 resultswithin the time period is included. Sodium 137 136 - 145 mmol/L LAB CHEMISTRY METHOD 03/24/2024 6:15 AM [facility] Potassium 4.8 3.4 - 5.1 mmol/L LAB CHEMISTRY METHOD 03/24/2024 6:15 AM [facility] Chloride 110 101 - 112 mmol/L LAB CHEMISTRY METHOD 03/24/2024 6:15 AM [facility] CO2 23 20 - 31 mmol/L LAB CHEMISTRY METHOD 03/24/2024 6:15 AM [facility] Anion Gap 4(L) 5 - 15 mmol/L LAB CHEMISTRY METHOD 03/24/2024 6:15 AM [facility] BUN 18 9 - 23 mg/dL LAB CHEMISTRY METHOD 03/24/2024 6:15 AM [facility] Creatinine 0.71 0.70 - 1.30 mg/dL LAB CHEMISTRY METHOD 03/24/2024 6:15 AM [facility] eGFR 111 >=60 mL/min/1.7 3 m2 LAB CHEMISTRY METHOD 03/24/2024 6:15 AM [facility] Comment: GFR < 60 suggests chronic kidney disease GFR < 15 suggests kidney failure Calculated using CKD-EPI (2020) equation, which has not been validated on patients <18 years of age. Race is no longer included as a factor. BUN/Creatinine Ratio 25 9 - 27 mg/mg LAB CHEMISTRY METHOD 03/24/2024 6:15 AM [facility] Glucose 98 74 - 106 mg/dL LAB CHEMISTRY METHOD 03/24/2024 6:15 AM [facility] Comment: Random serum glucose over 200 mg/dL diagnostic of diabetes. ??Fasting glucose over 125 mg/dL diagnostic of diabetes. Calcium 9.2 8.7 - 10.4 mg/dL LAB CHEMISTRY METHOD 03/24/2024 6:15 AM [facility] Blood Venipuncture / Unknown 03/24/2024 5:23 AM MST 03/24/2024 5:38 AM [facility] us Diann Tomas DO LAB BLOOD ORDERABLES F inal Result [facility] [address] [place] [address] * Surgical Care Welcome (03/23/2024 9:53 PM [facility]) Video Viewed VIEWED LAURI WELL 03/23/2024 9:53 PM [facility] Result [facility] Physician Inpatient MD PATIENT EDUCATION VIDEO O RDERS Final Result LAURI WELL * Troponin I, 5th Gen, Subsequent (03/23/2024 4:52 PM [facility]) Troponin I, 5th Generation 3 <=53 ng/L ng/L LAB IMMUNOLOGY METHOD 03/23/2024 5:24 PM [facility] Comment: Troponin results should be [...] Biotin greater than 300mg/day including vitamin supplements, [id number] supplements, and biotin supplements. Absolute Troponin Delta 0 <=11 ng/L LAB IMMUNOLOGY METHOD 03/23/2024 5:24 PM [facility] % Troponin Delta 0 <50 % LAB IMMUNOLOGY METHOD 03/23/2024 5:24 PM [facility] Blood VENOUS LINE / Unknown Venipuncture / Unknown 03/23/2024 4:52 PM [facility] 03/23/2024 4:55 PM [facility] Result [facility] Coby Muñiz MD LAB BLOOD ORDERABLES Final R esult Performing Organization Address City/[facility]/ZIP Co de Phone Number [facility] [address] [phone] * (ABNORMAL) TSH with Reflex to Free T4 (03/23/2024 4:52 PM [facility]) TSH <0.010(L) 0.550 - 4.780 uIU/mL LAB IMMUNOLOGY METHOD 03/23/2024 9:49 PM [facility] Blood VENOUS LINE / Unknown Venipuncture / Unknown 03/23/2024 4:52 PM [facility] 03/23/2024 4:55 PM [facility] Diann Zayda Thom LAB BLOOD ORDERABLES F inal Result Performing Organization Address [facility] Co de Phone Number [facility] [address] [phone] * (ABNORMAL) T4, Free, Direct (03/23/2024 4:52 PM [facility]) FT4 (Thyroxine) 2.61(H) 0.89 - 1.76 ng/dL LAB IMMUNOLOGY METHOD 03/23/2024 10:47 PM [facility] Blood VENOUS LINE / Unknown Venipuncture / Unknown 03/23/2024 4:52 PM [facility] 03/23/2024 4:55 PM [facility] Diann Tomas LAB BLOOD ORDERABLES F inal Result [facility] [address] [phone] * Phosphorus (03/23/2024 4:52 PM [facility]) Phosphorus 3.7 2.4 - 5.1 mg/dL LAB CHEMISTRY METHOD 03/23/2024 10:47 PM [facility] Blood VENOUS LINE / Unknown Venipuncture / Unknown 03/23/2024 4:52 PM MST 03/23/2024 4:55 PM MST Diann Tomas DO LAB BLOOD ORDERABLES F inal Result Performing Organization Address [facility] de Phone Number [facility] [address] [phone] * Magnesium (03/23/2024 4:52 PM MST) [facility] Magnesium 1.8 1.6 - 2.6 mg/dL LAB CHEMISTRY METHOD 03/23/2024 10:47 PM MST [facility] Blood VENOUS LINE / Unknown Venipuncture / Unknown 03/23/2024 4:52 PM MST 03/23/2024 4:55 PM MST Diann Tomas DO LAB BLOOD ORDERABLES F inal Result Performing Organization Address [facility] Phone Number [facility] [address] [phone] * Rapid EKG STAT - 1 Hr (03/23/2024 4:47 PM MST) Only the most recent of2 resultswithin the time period is included. 03/23/2024 4:47 PM MST Narrative [facility] EKG - 03/23/2024 6:33 PM MST ? [facility] ? Test Date: ?2024-03-23 16:47:23 Pat Name: ? BOUBACAR DEGARMO ? Department: ? Room: ? ED33 Gender: ? 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 Mo : ?1970 ? Requested By: COBY GRACIELA Order Number: [id number] ?Reading MD: ?? Beltran Amol ? Measurements Intervals ?[place] ? Rate: ? 100 ?P: ?0 PA: ? 0 ?QRS: ?50 QRSD: ? 100 ?T: ?30 QT: ? 330 ? QTc: ?427 ? Interpretive Statements Atrial fibrillation with rapid ventricular response Compared to ECG 03/23/2024 15:16:24 No significant change was found Electronically Signed On 03-23-2024 18:33:03 MST by Beltran Carmichael Procedure Note Beltran Carmichael MD - 03/23/2024 [facility] Test Date: 2024-03-23 16:47:23 Pat Name: BOUBACAR LENTZ Department: Room: [facility] Gender: M Tube Builder Airplane: Dell : 1970 Requested By: COBY MUÑIZ Order Number: [id number] Reading MD: Beltran Carmichael Measurements Intervals [place] Rate: 100 P: 0 PA: 0 QRS: 50 QRSD: 100 T: 30 [...] patient. This exam was interpreted by an [place] [employer] board certified radiologist with additional board certification by the [place] [employer]. If there are any questions regarding this exam please feel free to contact me directly at [phone] at our center in [place] or our national office at [phone]. This report was created with voice recognition [...] patient. This exam was interpreted by an [place] [employer] board certified radiologist with additional board certification by the [place] [employer]. If there are any questions regarding this exam please feel free to contact me directly at [phone] at our center in [place] or our national office at [phone]. This report was created with voice recognition software. A reasonable attempt was made to correct any misrecognized words and phrases. Electronically signed by: Blayne Marroquin MD 03/23/2024 4:17 PM us Coby Muñiz MD DIAGNOSTIC IMAGING ORDERABLE S Final Result * Troponin, 5th generation, baseline and 1 hour (03/23/2024 3:44 PM [facility]) Pathologist [facility] Troponin I, 5th Generation 3 <=53 ng/L ng/L LAB IMMUNOLOGY METHOD 03/23/2024 4:23 PM [facility] Comment: Troponin results should be [...] Biotin greater than 300mg/day including vitamin supplements, [id number] supplements, and biotin supplements. Blood VENOUS LINE / Unknown Venipuncture / Unknown 03/23/2024 3:44 PM [facility] 03/23/2024 3:50 PM [facility] us Coby Muñiz MD LAB BLOOD ORDERABLES Final R esult [facility] [address] [place] [address] * (ABNORMAL) NT Probrain Natriuretic Peptide (03/23/2024 3:44 PM [facility]) [facility] NT Probrain Natriuretic Peptide 599(H) <125 pg/mL LAB IMMUNOLOGY METHOD 03/23/2024 4:23 PM [facility] Comment: Negative - heart failure [...] 03/23/2024 3:44 PM MST 03/23/2024 3:50 PM [facility] us Coby Muñiz MD LAB BLOOD ORDERABLES Final R esult Performing Organization Address City/State/[facility] Co de Phone Number [facility] [address] [phone] * Lipid Panel (11/11/2023 11:18 AM MDT) [facility] Cholesterol, Total 111 <200 mg/dL LAB CHEMISTRY METHOD 11/11/2023 3:47 PM MDT [facility] Comment: National Cholesterol Education Guidelines (NCEP, June 2000): <200 mg/dL ? Desirable 200-239 mg/dL ??Borderline Risk >=240 mg/dL ? High Risk Triglycerides 49 <150 mg/dL LAB CHEMISTRY METHOD 11/11/2023 3:47 PM MDT [facility] Comment: National Cholesterol Education Guidelines (NCEP, June 2000): <150 mg/dL ? Normal Triglycerides 150-199 mg/dL ?Borderline High Triglycerides 200-499 mg/dL ?High Triglycerides > or =500 mg/dL ??Very High Triglycerides HDL Cholesterol 48 >=40 mg/dL LAB CHEMISTRY METHOD 11/11/2023 3:47 PM MDT [facility] LDL Cholesterol, Calc 53 See Comment mg/dL 11/11/2023 3:47 PM MDT [facility] Comment: National Cholesterol Education Guidelines (NCEP, June 2000): <100 mg/dL ? Optimal 100-129 mg/dL ?Near Optimal 130-159 mg/dL ?Borderline High 160-189 mg/dL ?High > or =190 mg/dL ??Very High Non-HDL Cholesterol 63 See Comment mg/dL 11/11/2023 3:47 PM MDT [facility] Comment: National Cholesterol Education Guidelines (NCEP, June 2000): <130 mg/dL ? Desirable 130-159 mg/dL ?Above Desirable 160-189 mg/dL ?Borderline High 190-219 mg/dL ?High > or =220 mg/dL ??Very High Blood VENOUS LINE / Unknown Venipuncture / Unknown 11/11/2023 11:18 AM MDT 11/11/2023 11:21 AM MDT Loretta Hall COMPUTER NUMERICAL CONTROL PROGRAMMER LAB BLOOD ORDERABLES Final Result Performing Organization Address [facility]/State/[facility] Co de Phone Number [facility] [address] [phone] from Last 3 Months or Most Recently Relevant to Health Maintenance Insurance [facility] [place] MEDICA[place] Advance Directives * Full Code (Latest [...] 3:27 PM 11/12/2023 9:32 AM Care Teams Campus Receptionist Relationship Specialty Start Date End Date None, Pcp, MD PCP - General Other or Unknown Specialty 01/10/13
--- OUTSIDE RECORDS SUMMARY | 2024-06-01 02:36 | XMS_ITS | Encounter Summary ---
Author Organization [facility] Address [address] [place] [address] Care Team Providers Care Tying Machine Operator Lumber Name Role Phone Asked, Nopcp Primary Care Provider Unavailabl e Reason for Visit * Reason Comments Medication Refill Encounter Details Date Type Department Care Team (Late st Contact Info) Description 09/14/2023 Refill [facility] ([facility]) [address] [place] [address] Darion Almodovar, DO [address] [employer] [place] [address] Social History Tobacco Use Types Packs/Day Years Used Date Smoking Tobacco: Every Day Cigarettes 0.5 35 Smokeless Tobacco: Never Alcohol Use Standard Drinks/Week Comments Not Currently 1 (1 standard drink = 0.6 oz pure alcohol) Caffiene; 3 cups coffee daily, several sodas & iced teas daily PHQ-2 Answer Date Recorded PHQ-2 SCORE 2 03/21/2023 PHQ-9 Answer Date Recorded PHQ-9 Total Score 17 03/21/2023 Sex and Gender Information Value Date Recorded Sex Assigned at Male 12/19/2019 12:23 AM [facility] Legal Sex Male 3:53 PM [facility] Gender Identity Male 12/19/2019 12:23 AM [facility] Sexual Orientation Straight 12/19/2019 12 :23 AM [facility] Occupation Industry Job Start Date Job End Date Not on file Not on file Not on file Not on file documented as of this encounter Progress Notes * Darion Almodovar DO - 09/17/2023 3:10 PM MDT He canceled his endocrinology appointment. I will not refill it. documented in this encounter Plan of Treatment Not on file documented as of this encounter Visit Diagnoses Not on filedocumented in this encounter Additional Health Concerns Assessment Noted Time PHQ-9 Depression Total Score: 17 024 3:39 PM MST PHQ-2 Depression Total Score: 2 03/21/19 24 3:39 PM MST documented as of this encounter Care Teams Tying Machine Operator Lumber Relationship Specialty Start Date End Date Asked, Ellencp . PCP - General Internal Medicine 04/23/22 documented as of this encounter
--- OUTSIDE RECORDS SUMMARY | 2024-06-01 02:36 | XMS_ITS | Encounter Summary ---
Author Organization [facility] and [facility] Address [address] [address] Care Team Providers Care Block Cutter Name Role Phone Asked, Nopcp Primary Care Provider Unavailabl e Encounter Details Date Type Department Care Team (Late st Contact Info) Description 03/17/2024 Orders Only [facility] ([facility]) [address] [place] [id number] Arely Arrington MA [facility] [place] Social History Tobacco Use Types Packs/Day Years [...] Sex Assigned at Male 12/19/2019 12:23 AM [facility] Legal Sex Male 3:53 PM [facility] Gender Identity Male 12/19/2019 12:23 AM [facility] Sexual Orientation Straight 12/19/2019 12 :23 AM [facility] Occupation Industry Job Start Date Job End Date Not on file Not on file Not on file Not on file documented as of this encounter Plan of Treatment Not on file documented as of this encounter Visit Diagnoses Not on filedocumented in this encounter Additional Health Concerns Assessment Noted Time PHQ-9 Depression Total Score: 17 024 3:39 PM MST PHQ-2 Depression Total Score: 2 03/21/19 24 3:39 PM MST documented as of this encounter Care Teams Block Cutter Relationship Specialty Start Date End Date Asked, Nopcp . PCP - General Internal Medicine 04/23/22 documented as of this encounter
[2024-06-01 02:45] LABS: Platelet Count 286 X10*3/uL (160-400); Troponin-I High Sensitivity < 2.7 ng/L (<3.5-35.0)
[2024-06-01 02:46] LABS: Alanine Aminotransferase 29 U/L (0-40); Albumin Level 4.2 g/dL (3.5-5.0); Alkaline Phosphatase 106 U/L (39-117); Anion Gap 16 (12-20); Aspartate Amino Transferase 45 U/L (5-37); Bilirubin Total 0.2 mg/dL (0.0-1.0); Blood Urea Nitrogen 18 mg/dL (9-16); Calcium 9.1 mg/dL (8.4-10.2); Carbon Dioxide 18 mmol/L (22-29); Chloride 109 mmol/L (96-108); Estimated Glomerular Filt Rate > 60; Glucose Random 100 mg/dL (60-115); Lipase 37 U/L (8-78); Potassium 4.6 mmol/L (3.3-5.1); Sodium 138 mmol/L (135-145); Total Protein 7.5 g/dL (6.5-8.0)
--- NOTE | 2024-06-01 04:37 | ED_ITS ---
HPI - Chest Pain General Chief Complaint: Chest Pain Stated Complaint: LOWER ABDOMINAL PAIN/AFIB Time Seen by Provider: 06/01/24 04:36 History of Present Illness ED Provider: Minerva HALL narrative: The patient is a 53-year-old male who was from [place], [place]. He apparently has a history of paroxysmal atrial fibrillation and takes metoprolol and apixaban. The patient says that he had taken a bus from [place] to visit a friend in this area. 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 An ambulance was called. Reportedly paramedics felt that he was in atrial fibrillation with a heart rate of 190 but when he arrived here he was in sinus rhythm with a normal rate. The the patient has been waiting for over 2 hours in the emergency department when he told the nurse you would walk out soon if he was not seen. I then went to see the patient. He had fallen asleep and I woke him up to speak with him. He says he is still having pain in his right side. He indicates his right lower abdomen in his right flank. Related Data Allergies Allergy/AdvReac Type Severity Reaction Status Date / Time diphenhydramine Allergy Involuntary Verified 06/01/24 02:11 [From Benadryl] Spasms ketorolac [From Toradol] Allergy Hives Verified 06/01/24 02:11 tramadol Allergy Hives Verified 06/01/24 02:11 Review of Systems 2 Review of Systems: Yes all other systems are reviewed and are negative Physical Exam 2 Vital Signs: Vital Signs: Last Vital Signs Temp 98.1 F 06/01/24 06:47 Pulse 73 06/01/24 06:47 Resp 17 06/01/24 06:47 BP 112/74 06/01/24 06:47 Pulse Ox 94 06/01/24 06:47 O2 Del Method Room Air 06/01/24 06:47 BMI result Body Mass Index 25.7 Const: Other: The patient is a chronically ill-appearing 53-year-old male who was asleep but awoke with tactile stimulation to a normal mental status. He did not appear in acute distress. He looks quite chronically ill although he looks fairly muscular. He looks older than his age. HEENT: Other: The patient has no facial asymmetry. Mucous membranes are moist. He is missing many teeth. Eyes: Other: Pupils were small and equal, conjunctivae clear Neck: Neck: Yes normal visual inspection and Yes no JVD Resp: Effort & Inspection: normal respiratory effort Auscultation: clear to auscultation bilaterally Cardio: Rate: regular rate Rhythm: regular rhythm Heart sounds: S1 normal heart sound present and S2 normal heart sound present GI: Other: The patient reported tenderness with palpation of the right lower quadrant. Back/Spine/Pelvis: Other: The patient seemed to have right-sided CVA percussion tenderness Skin: Other: Skin is pale and dry Neuro: Other: The patient was asleep but awoke easily to a normal mental status. Face is symmetrical. Speech is clear. He moves his extremities normally and appropriately. Extrem: Other: No peripheral edema Medical Decision Making Medical Decision Making MDM Narrative: The patient is a 53-year-old male with a history of paroxysmal atrial fibrillation on metoprolol and anticoagulation who is apparently visiting this area from [place], [place]. He says that he had taken a bus from [place], [place] to [place] to visit a friend. He says that he was at a [employer]s diner this morning having a very early breakfast. Subsequently he was walking when he developed left-sided chest pain and right lower abdominal pain. The ambulance was called. Paramedics report that the patient had been tachycardic with atrial fibrillation at a rate of 190 beats per minute. However by the time the patient arrived at the emergency room he was in normal sinus rhythm with a normal rate. His EKG is normal. Labs are unremarkable. He was complaining of right-sided abdominal pain and flank pain. He seemed to have some right-sided CVA percussion tenderness. CT of the abdomen and pelvis was done to look for a possible kidney stone. The CT shows a great deal of stool in the colon including a very large stool ball in in the rectum. During his workup the patient was sleeping comfortably. I woke up the patient and explained that his CT scan did not show anything acutely dangerous but did possibly show constipation. The patient insists that he has bowel movements every day and does not feel that he is constipated at all. At that time was the morning and he seemed comfortable being discharged without further intervention. He was advised follow-up with his regular doctor in [place]. Lab Data 06/01/24 02:13 06/01/24 02:13 Labs: Lab Results 06/01/24 06/01/24 06/01/24 Range/Units 02:13 04:20 04:54 WBC 5.7 (4.8-10.8) X10*3/uL RBC 4.61 (4.60-5.80) X10*6/uL Hgb 13.6 L (14.0-18.0) g/dl Hct 39.9 L (42.0-52.0) % MCV 86.6 (80.0-98.0) fL MCH 29.5 (27.0-33.0) pg MCHC 34.1 (31.0-36.0) g/dl RDW 15.8 (11.0-16.0) % Plt Count 286 (160-400) X10*3/uL MPV 10.6 (9.4-12.4) fL Immature Gran % (Auto) 0.4 (0.0-0.4) % Neut % (Auto) 57.7 (45-73) % Lymph % (Auto) 26.4 (20-40) % [place] % (Auto) 10.4 (2-11) % Eos % (Auto) 4.6 H (0-4) % Baso % (Auto) 0.5 (0-2) % Lymph # (Auto) 1.5 (1.2-4.9) X10*3/uL [place] # (Auto) 0.6 (0.1-1.2) X10*3/uL Eos # (Auto) 0.3 (0.0-0.4) X10*3/uL Baso # (Auto) 0.0 (0.0-0.2) X10*3/uL Abs Immat Gran (auto) 0.02 (0.00-0.03) X10*3/uL Absolute Neuts (auto) 3.3 (2.0-8.3) x10*3/uL Absolute Nucleated RBC 0.000 (0.0-0.012) X10*3/uL Nucleated RBC % (auto) 0.0 (0.0-0.2) /100WBC Hold Blue Top SEE NOTE Sodium 138 (135-145) mmol/L Potassium 4.6 (3.3-5.1) mmol/L Chloride 109 H (96-108) mmol/L Carbon Dioxide 18 L (22-29) mmol/L Anion Gap 16 (12-20) BUN 18 H (9-16) mg/dL Creatinine 0.70 (0.5-1.4) mg/dL Estim Creat Clear Calc 141.0 Estimated GFR > 60 Random Glucose 100 (60-115) mg/dL Calcium 9.1 (8.4-10.2) mg/dL Total Bilirubin 0.2 (0.0-1.0) mg/dL AST 45 H (5-37) U/L ALT 29 (0-40) U/L Alkaline Phosphatase 106 (39-117) U/L Troponin I High Sens < 2.7 < 2.7 (<3.5-35.0) ng/L Total Protein 7.5 (6.5-8.0) g/dL Albumin 4.2 (3.5-5.0) g/dL Lipase 37 (8-78) U/L Urine Color Yellow Urine Appearance Clear Urine pH 6.5 (5.0-9.0) Ur Specific [place] 1.025 (1.005-1.025) Urine Protein Negative (Neg-Trace) mg/dL Urine Glucose (UA) Negative (Negative) mg/dL Urine Ketones Negative (Negative) mg/dL Urine Blood Negative (Negative) Urine Nitrite Negative (Negative) Ur Leukocyte Esterase Negative (Negative) Urine Opiates Screen Not Detected (Not Detect) Ur Buprenorphine Scrn Not Detected (Not Detect) ng/mL Ur Oxycodone Screen Not Detected (Not Detect) ng/mL Urine Methadone Screen Not Detected (Not Detect) ng/mL Urine Fentanyl Screen Not Detected (Not Detect) Ur Barbiturates Screen Not Detected (Not Detect) Ur Phencyclidine Scrn Not Detected (Not Detect) Ur Amphetamines Screen Not Detected (Not Detect) U Benzodiazepines Scrn Not Detected (Not Detect) Urine Cocaine Screen Not Detected (Not Detect) U Marijuana (THC) Screen POSITIVE H (Not Detect) Independent Interpretation I performed an independent interpretation of an: EKG Interpretation: EKG at 02:07 shows normal sinus rhythm at 90 beats per minute. It was a normal EKG. No old EKGs available for comparison. Discharge Plan Discharge Clinical Impression: Chest pain, Abdominal pain Patient Disposition: Home, Self-Care Additional Instructions: Your testing with regard to your heart today is very reassuringly normal. Your EKG is normal and your you have tested negative for a heart attack. The CAT scan of your abdomen which was done to evaluate your abdominal pain shows a lot of stool in your colon. I thought that perhaps your pain was being caused by constipation. However if you feel that you are having regular bowel movements it may be that your findings on the CAT scan are simply what is normal for you. Please continue your regular medications. Please follow up with your regular doctor when you get back home. Return to the emergency room if you feel significantly worse. Interventions: ED Discharge Assessment Last Done: 06/01/24 06:47 Discharge Date/Time: 06/01/24 07:00 Print Language: Ukrainian
--- NOTE | 2024-06-01 04:49 | PC.NURSE ---
on initial arival, pt states he was visiting a friend when the pain developed which caused him to call 911. with at bedside, pt states he was at [facility], left to go home and then he developed the pain. pt states he is from [place] .
[2024-06-01 05:00] LABS: Appearance Urine Clear; Color Urine Yellow; Glucose Urine UA Negative (Negative); Leukocyte Esterase Urine Negative (Negative); Nitrite Urine Negative (Negative); PH 6.5 (5.0-9.0); Specific Gravity - Urine 1.025 (1.005-1.025); Urine Blood Negative (Negative); Urine Ketones Negative (Negative); Urine Protein Negative (Neg-Trace)
[2024-06-01 05:14] LABS: Amphetamine Screen Urine Not Detected (Not Detect); Barbiturates, Urine Not Detected (Not Detect); Benzodiazepines Screen Urine Not Detected (Not Detect); Buprenorphine Scr Not Detected (Not Detect); Cannabinoid Screen Urine POSITIVE (Not Detect); Cocaine Screen Urine Not Detected (Not Detect); Fentanyl, urine Not Detected (Not Detect); Methadone Screen, Urine Not Detected (Not Detect); Opiate Screen Urine Not Detected (Not Detect); Oxycodone Screen Urine Not Detected (Not Detect); Phencyclidine Screen Urine Not Detected (Not Detect)
[2024-06-01 06:00] VITALS: BP 112/74; PULSE 73; RESP 17; O2SAT 94
[2024-06-01 06:47] VITALS: BP 112/74; PULSE 73; RESP 17; TEMP 36.7; O2SAT 94
== END 2024-06-01 07:00 | disposition home or self-care (01) ==
PROVIDERS: Emergency Provider Emergency Medicine
DX: R07.9 Chest pain, unspecified (principal); R10.9 Unspecified abdominal pain; I48.91 Unspecified atrial fibrillation; Z79.01 Long term (current) use of anticoagulants; Z79.899 Other long term (current) drug therapy
CPT/HCPCS: 36415; 74176; 80053; 80307; 81003; 83690; 84484; 85025; 93005; 99284; 99285

== ENCOUNTER → 2024-06-01 02:07 | Outpatient (BNV) | payer SELFPAY | PROVIDERS: Emergency Provider Emergency Medicine; Visit Provider Internal Medicine | DX: R00.0 Tachycardia, unspecified (principal) | CPT/HCPCS: 93010 ==

== ENCOUNTER → 2024-06-01 04:45 | Outpatient (BNV) | payer SELFPAY | PROVIDERS: Emergency Provider Emergency Medicine; Visit Provider Radiology Diagnostic Radiology | DX: R19.5 Other fecal abnormalities (principal) | CPT/HCPCS: 74176 ==